=== PATIENT | male | born 1960 | race Caucasian/White ===

== ENCOUNTER 2017-12-18 10:20 | Inpatient (IN) | payer MEDICAID, MEDICARE ==
[2017-12-18] MEDS ORDERED: Sodium Chloride 0.9% 10 ML Syringe FLUSH PRN (16:48)
[2017-12-18] MEDS ORDERED: Furosemide 100 MG/10 ML SDV IVPUSH ONE (16:50)
[2017-12-18] MEDS ORDERED: predniSONE 10 MG Tab PO ONE (17:01)
[2017-12-18] MEDS ORDERED: Amoxicillin/Clavulanate K 875-125 MG Tab PO ONE (17:05)
[2017-12-18] MEDS ORDERED: Acetaminophen 325 MG Tab PO PRN (17:07)
[2017-12-18] MEDS ORDERED: Zolpidem 5 MG Tab PO PRN (17:07)
[2017-12-18] MEDS ORDERED: Albuterol/Ipratropium 3.0-0.5 MG/3 ML Neb Soln NEB PRN (17:08)
[2017-12-18] MEDS ORDERED: Furosemide 40 MG/4 ML VIAL IVPUSH ONE (17:15)
[2017-12-18] MEDS: Pantoprazole 40 MG Tab.CR PO SCH (18:25)
[2017-12-18] MEDS: Insulin Aspart 100 Units/ML 3 ML Pen SUBCUT SCH (18:26)
--- NOTE | 2017-12-18 19:19 | PCM.HP ---
H&P History of Present Illness - General Date of Service: 12/18/17 Admit Problem/Dx: Admission Diagnosis/Problem Admission Diagnosis/Problem CHF, Congestive heart failure Source of Information: Patient, Provider History Limitations: Reports: No Limitations - History of Present Illness Initial Comments - Free Text/Narative: 57-year-old gentleman presented to the outpatient clinic for increasing cough congestion and overall debility malaise. He has known history of cardiomyopathy. States not feeling up to par since July. He did call his PCP who recommended he double his dose of furosemide from 20-40 mg for the next 4 days. He did take 1 extra dose last night but still did not feel his breathing was to par. Presented to the clinic for further evaluation and management. Chest x-ray at the time did show questionable fluid overload as well as exacerbation of COPD with wheezing throughout the precordium. Has diabetes mellitus type 2 does not use insulin controlled on metformin. [facility] in [place] however hasn't been for some time. Last echocardiogram was roughly 2-3 years ago. No history of coronary event or valvular disease. States he's had intermittent sweats and chills. A productive cough with white phlegm. No chest pain or pressure. No interscapular pain neck pain jaw pain or radiation down the arms. Denies any abdominal pain. Did have some nausea but no vomiting. He denies any epistaxis or hemoptysis. Denies sore throat difficulty chewing or swallowing. Denies abdominal pain diarrhea melena or hematochezia. Notes his urine output has been significantly less over the last few days. Denies any dysuria or hematuria. Has not noticed any sudden increased swelling of the lower extremities and is not having any lower extremity redness pain or tenderness. He denies any recent long trips medication changes other than that mentioned or ill contacts. - Related Data Allergies/Adverse Reactions: Allergies Allergy/AdvReac Type Severity Reaction Status Date / Time nuts Allergy Anaphylactic Uncoded 12/21/13 16:11 Shock Home Medications: Home Meds Aspirin [Adult Low Dose Aspirin EC] 81 mg PO DAILY 12/21/13 [History] Carvedilol 25 mg PO BID 12/21/13 [History] Lisinopril 40 mg PO DAILY 12/21/13 [History] amLODIPine Besylate [Amlodipine Besylate] 5 mg PO DAILY 12/21/13 [History] Albuterol [Ventolin HFA] 2 puff INH Q4H PRN 12/18/17 [History] Albuterol/Ipratropium [DuoNeb 3.0-0.5 MG/3 ML] 3 ml NEB QID PRN 12/18/17 [ History] Cephalexin 500 mg PO TID 12/18/17 [History] Citalopram Hydrobromide [Celexa] 40 mg PO DAILY 12/18/17 [History] Doxepin [SINEquan] 50 mg PO BEDTIME 12/18/17 [History] Fexofenadine [Bekah] 180 mg PO DAILY 12/18/17 [History] Furosemide 40 mg PO DAILY 12/18/17 [History] HYDROcodone/Ibuprofen [Vicoprofen] 1 tab PO Q6H PRN 12/18/17 [History] metFORMIN [Glucophage] 850 mg PO BIDMEALS 12/18/17 [History] predniSONE [Prednisone] 10 mg PO BID 12/18/17 [History] Past Medical History HEENT History: Reports: Allergic Rhinitis Cardiovascular History: Reports: Cardiomyopathy, Heart Failure, Hypertension, SOB on Exertion Respiratory History: Reports: Bronchitis, Recurrent, COPD, Other (See Below) ( Uses oxygen intermittently with activity when needed) Gastrointestinal History: Reports: None Psychiatric History: Reports: Anxiety, Learning Disability Endocrine/Metabolic History: Reports: Diabetes, Type II, Obesity/BMI 30+ - Past Imaging History Past Imaging History: Reports: Angiography, Cardiac Echo Social & Family History - Tobacco Use Years of Tobacco use: 30 Used Tobacco, but Quit: Yes Month/Year Tobacco Last Used: 11/24/2013 Second Hand Smoke Exposure: Yes - Alcohol Use Days Per Week of Alcohol Use: 0 - Recreational Drug Use Recreational Drug Use: No Drug Use in Last 12 Months: No - Living Situation & Occupation Living situation: Reports: , with Spouse Occupation: Disabled H&P Review of Systems - Review of Systems: Review Of Systems: ROS reveals no pertinent complaints other than HPI. Exam - Exam Exam: See Below - Vital Signs Vital Signs: Last Vital Signs Temp 97.3 F 12/18/17 15:00 Pulse 86 12/18/17 15:00 Resp 20 12/18/17 15:00 BP 143/69 H 12/18/17 15:00 Pulse Ox 94 L 12/18/17 15:00 - Exam Quality Assessment: Supplemental Oxygen General: Alert, Oriented, Cooperative, Mild Distress HEENT: Conjunctiva Clear, Mucosa Moist & [place] Neck: Supple, Trachea Midline. No: Lymphadenopathy Lungs: Crackles, Wheezing Cardiovascular: Regular Rate, Regular Rhythm, Normal S1, Normal S2 GI/Abdominal Exam: Normal Bowel Sounds, Soft, Non-Tender Extremities: Non-Tender, Pedal Edema. No: Cee's Sign, Increased Warmth, Redness Skin: Warm, Intact Neurological: Reflexes Equal Bilateral Psychiatric: Alert, Normal Affect, Normal Mood - Patient Data Lab Results Last 24 hrs: Laboratory Results - last 24 hr 12/18/17 12/18/17 12/18/17 Range/Units 17:25 17:25 17:25 WBC 11.1 (4.5-12.0) X10-3/uL RBC 5.20 (4.30-5.75) x10(6)uL Hgb 14.9 (11.5-15.5) g/dL Hct 44.8 (30.0-51.3) % MCV 86.1 (80-96) fL MCH 28.6 (27.7-33.6) pg MCHC 33.2 (32.2-35.4) g/dL RDW 12.4 (11.5-15.5) % Plt Count 317 (125-369) X10(3)uL MPV 9.4 (7.4-10.4) fL Neut % (Auto) 68.7 (46-82) % Lymph % (Auto) 21.3 (13-37) % Page % (Auto) 6.9 (4-12) % Eos % (Auto) 2 (1.0-5.0) % Baso % (Auto) 1 (0-2) % Neut # (Auto) 7.5 (1.6-8.3) # Lymph # (Auto) 2.4 (0.6-5.0) # Page # (Auto) 0.8 (0.0-1.3) # Eos # (Auto) 0.3 (0.0-0.8) # Baso # (Auto) 0.1 (0.0-0.2) # ABG pH (7.35-7.45) ABG pCO2 (35-45) mmHg ABG pO2 (83-108) mmHg ABG HCO3 (22-26) mmol/L ABG O2 Saturation (96-97) % ABG Base Excess (-2-2) Juan David Test O2 Delivery Device Sodium 140 (135-145) mmol/L Potassium 3.4 L (3.5-5.3) mmol/L Chloride 100 (100-110) mmol/L Carbon Dioxide 30 (21-32) mmol/L BUN 29 H (7-18) mg/dL Creatinine 1.2 (0.70-1.30) mg/dL Est Cr Clr Drug Dosing TNP Estimated GFR (MDRD) > 60 (>60) BUN/Creatinine Ratio 24.2 H (9-20) Glucose 192 H (80-116) mg/dL Calcium 9.5 (8.6-10.2) mg/dL Phosphorus 4.3 (2.6-4.6) mg/dL Magnesium 1.7 L (1.8-2.5) mg/dL Total Bilirubin 0.4 (0.1-1.3) mg/dL AST 21 (5-25) IU/L ALT 61 H (12-36) U/L Alkaline Phosphatase 68 (56-112) IU/L Troponin I < 0.017 L (<0.017-0.056) ng/mL C-Reactive Protein 0.2 L (0.5-0.9) mg/dL NT-Pro-B Natriuret Pep 612 H (<=125) pg/mL Total Protein 7.7 (6.0-8.0) g/dL Albumin 3.9 (3.5-5.2) g/dL Globulin 3.8 g/dL Albumin/Globulin Ratio 1.0 TSH, Ultra Sensitive 2.67 (0.36-3.74) IU/mL 12/18/17 Range/Units 17:35 WBC (4.5-12.0) X10-3/uL RBC (4.30-5.75) x10(6)uL Hgb (11.5-15.5) g/dL Hct (30.0-51.3) % MCV (80-96) fL MCH (27.7-33.6) pg MCHC (32.2-35.4) g/dL RDW (11.5-15.5) % Plt Count (125-369) X10(3)uL MPV (7.4-10.4) fL Neut % (Auto) (46-82) % Lymph % (Auto) (13-37) % Page % (Auto) (4-12) % Eos % (Auto) (1.0-5.0) % Baso % (Auto) (0-2) % Neut # (Auto) (1.6-8.3) # Lymph # (Auto) (0.6-5.0) # Page # (Auto) (0.0-1.3) # Eos # (Auto) (0.0-0.8) # Baso # (Auto) (0.0-0.2) # ABG pH 7.38 (7.35-7.45) ABG pCO2 51 H (35-45) mmHg ABG pO2 49 L* (83-108) mmHg ABG HCO3 29 H (22-26) mmol/L ABG O2 Saturation 83 L* (96-97) % ABG Base Excess 3.3 H (-2-2) Juan David Test Passed O2 Delivery Device Nasal cannula Sodium (135-145) mmol/L Potassium (3.5-5.3) mmol/L Chloride (100-110) mmol/L Carbon Dioxide (21-32) mmol/L BUN (7-18) mg/dL Creatinine (0.70-1.30) mg/dL Est Cr Clr Drug Dosing Estimated GFR (MDRD) (>60) BUN/Creatinine Ratio (9-20) Glucose (80-116) mg/dL Calcium (8.6-10.2) mg/dL Phosphorus (2.6-4.6) mg/dL Magnesium (1.8-2.5) mg/dL Total Bilirubin (0.1-1.3) mg/dL AST (5-25) IU/L ALT (12-36) U/L Alkaline Phosphatase (56-112) IU/L Troponin I (<0.017-0.056) ng/mL C-Reactive Protein (0.5-0.9) mg/dL NT-Pro-B Natriuret Pep (<=125) pg/mL Total Protein (6.0-8.0) g/dL Albumin (3.5-5.2) g/dL Globulin g/dL Albumin/Globulin Ratio TSH, Ultra Sensitive (0.36-3.74) IU/mL Result Diagrams: 12/18/17 17:25 12/18/17 17:25 - Problem List (1) Acute on chronic congestive heart failure SNOMED Code(s): 45287697 ICD Code: I50.9 - HEART FAILURE, UNSPECIFIED Status: Acute Current Visit : Yes (2) Acute exacerbation of chronic obstructive pulmonary disease (COPD) SNOMED Code(s): 172412434 ICD Code: J44.1 - CHRONIC OBSTRUCTIVE PULMONARY DISEASE W (ACUTE) EXACERBATION Status: Acute Current Visit: Yes (3) Cardiomyopathy SNOMED Code(s): 69469342 ICD Code: I42.9 - CARDIOMYOPATHY, UNSPECIFIED Status: Chronic Priority: Medium Current Visit: Yes (4) Diabetes mellitus type 2 in obese SNOMED Code(s): 13459479 ICD Code: E11.69 - TYPE 2 DIABETES MELLITUS WITH OTHER SPECIFIED COMPLICATION ; E66.9 - OBESITY, UNSPECIFIED Status: Acute Current Visit: Yes (5) HTN, Benign hypertension SNOMED Code(s): 96169056 ICD Code: I10 - ESSENTIAL (PRIMARY) HYPERTENSION Status: Chronic Priority : Medium Current Visit: Yes (6) Morbid obesity SNOMED Code(s): 828167108, 78658990329256 ICD Code: E66.01 - MORBID (SEVERE) OBESITY DUE TO EXCESS CALORIES Status: Acute Current Visit: Yes (7) Anxiety SNOMED Code(s): 66786260 ICD Code: F41.9 - ANXIETY DISORDER, UNSPECIFIED Status: Chronic Priority : Medium Current Visit: Yes Problem List Initiated/Reviewed/Updated: Yes Orders Last 24hrs: Active Orders 24 hr Category Date Time Status Patient Status [ADT] Routine ADT 12/18/17 15:16 Active Bedrest Bathroom Privileges [RC] ASDIRECTED Care 12/18/17 17:07 Active Blood Glucose Check, Bedside [RC] TIDMEALS Care 12/18/17 16:48 Active Cardiac Education [RC] Click to Edit Care 12/18/17 16:49 Active Communication Order [RC] ASDIRECTED Care 12/18/17 16:49 Active Communication Order [RC] ASDIRECTED Care 12/18/17 16:55 Active Diabetes Education [RC] Click to Edit Care 12/18/17 16:49 Active Height and Weight [RC] DAILY Care 12/18/17 17:07 Active Intake and Output [RC] Q4H Care 12/18/17 17:08 Active Notify Provider Vital Signs [RC] ASDIRECTED Care 12/18/17 17:09 Active Oxygen Therapy [RC] ASDIRECTED Care 12/18/17 16:49 Active RT Incentive Spirometry [RC] Q2HWA Care 12/18/17 16:48 Active Telemetry Monitoring [Cardiac Monitoring] [RC] .As Care 12/18/17 15:16 Active Directed VTE/DVT Education [RC] Per Unit Routine Care 12/18/17 17:07 Active Vital Signs [RC] Q4H Care 12/18/17 17:07 Active Respiratory Care Assess and Treatment [CONS] Routine Cons 12/18/17 16:48 Active 2 Gram Sodium Diet [DIET] Diet 12/18/17 Breakfast Active Consistent Carbohydrate Diet [DIET] Diet 12/18/17 Breakfast Active Echo Comp wo Cont [US] Routine Exams 12/18/17 18:13 Ordered CULTURE BLOOD [BC] Urgent Lab 12/18/17 17:25 Received CULTURE BLOOD [BC] Urgent Lab 12/18/17 17:30 Received CULTURE SPUTUM + SMEAR [RM] Routine Lab 12/18/17 17:03 Ordered TROPONIN I [CHEM] Q4H Lab 12/18/17 21:07 Ordered UA W/MICROSCOPIC [URIN] Routine Lab 12/18/17 17:07 Ordered Acetaminophen [Tylenol] Med 12/18/17 17:07 Active 650 mg PO Q4H PRN Albuterol/Ipratropium [DuoNeb 3.0-0.5 MG/3 ML] Med 12/18/17 17:08 Active 3 ml NEB ASDIRECTED PRN Albuterol/Ipratropium [DuoNeb 3.0-0.5 MG/3 ML] Med 12/18/17 21:00 Active 3 ml NEB QIDRT Amoxicillin/Clavulanate K [Augmentin 875 MG/125 MG] Med 12/19/17 09:00 Active 1 tab PO BID Aspirin [Halfprin] Med 12/19/17 09:00 Active 81 mg PO DAILY Carvedilol [Coreg] Med 12/18/17 21:00 Active 25 mg PO BID Citalopram [Celexa] Med 12/19/17 09:00 Active 40 mg PO DAILY Doxepin [SINEquan] Med 12/18/17 21:00 Active 50 mg PO BEDTIME Enoxaparin [Lovenox] Med 12/18/17 20:00 Active 40 mg SUBCUT Q24H Insulin Aspart [NovoLOG] Med 12/18/17 18:00 Active See Protocol SUBCUT TIDMEALS Lisinopril [Prinivil] Med 12/19/17 09:00 Active 40 mg PO DAILY Pantoprazole [ProTONIX] Med 12/18/17 17:30 Active 40 mg PO ACBREAKFAST Sodium Chloride 0.9% [Saline Flush] Med 12/18/17 16:48 Active 10 ml FLUSH ASDIRECTED PRN Zolpidem [Ambien] Med 12/18/17 17:07 Active 5 mg PO BEDTIME PRN amLODIPine [Norvasc] Med 12/18/17 21:00 Active 5 mg PO DAILY metFORMIN [Glucophage] Med 12/18/17 18:00 Active 850 mg PO BIDMEALS predniSONE Med 12/19/17 08:00 Active 40 mg PO WITHBREAKFAST Blood Culture x2 Reflex Set [OM.PC] Urgent Oth 12/18/17 17:03 Ordered Peripheral IV Insertion Adult [OM.PC] Routine Oth 12/18/17 16:48 Ordered Resuscitation Status Routine Resus Stat 12/18/17 17:07 Ordered Medication Orders Acetaminophen (Tylenol) 650 mg PO Q4H PRN PRN Reason: Pain (Mild 1-3)/fever Albuterol/Ipratropium (Duoneb 3.0-0.5 Mg/3 Ml) 3 ml NEB QIDRT NIKHIL Albuterol/Ipratropium (Duoneb 3.0-0.5 Mg/3 Ml) 3 ml NEB ASDIRECTED PRN PRN Reason: SHORTNESS OF BREATH Amlodipine Besylate (Norvasc) 5 mg PO DAILY [facility] Amoxicillin/Clavulanate Potassium (Augmentin 875 Mg/125 Mg) 1 tab PO BID NIKHIL Stop: 12/24/17 09:01 Aspirin (Halfprin) 81 mg PO DAILY [facility] Carvedilol (Coreg) 25 mg PO BID [facility] Citalopram Hydrobromide (Celexa) 40 mg PO DAILY NIKHIL Doxepin HCl (Sinequan) 50 mg PO BEDTIME NIKHIL Enoxaparin Sodium (Lovenox) 40 mg SUBCUT Q24H [facility] Insulin Aspart (Novolog) 0 unit SUBCUT TIDMEALS [facility]; Protocol Last Admin: 12/18/17 18:26 Dose: 1 unit Lisinopril (Prinivil) 40 mg PO DAILY [facility] Metformin HCl (Glucophage) 850 mg PO BIDMEALS [facility] Last Admin: 12/18/17 18:25 Dose: 850 mg Pantoprazole Sodium (Protonix) 40 mg PO ACBREAKFAST [facility] Last Admin: 12/18/17 18:25 Dose: 40 mg Prednisone (Prednisone) 40 mg PO WITHBREAKFAST [facility] Sodium Chloride (Saline Flush) 10 ml FLUSH ASDIRECTED PRN PRN Reason: Keep Vein Open Zolpidem Tartrate (Ambien) 5 mg PO BEDTIME PRN PRN Reason: Sleep Assessment/Plan Comment:: Admit to medical surgical with telemetry. Saline lock IV Friday low-sodium carb consistent diet. Follow electrolytes. Continue oxygen via nasal cannula. Her DuoNeb treatments with incentive spirometry oral Augmentin has been started Lovenox started protonix started continue his home medications will give IV Lasix 40 mg monitor urine output. Daily weights. ABGs reviewed. CO2 retainer. Likely obstructive and restrictive sleep apnea. Get echocardiogram when the team is back. We'll have him up in about tomorrow. Anticipate 24-48 hour inpatient stay depending response to above medical interventions. Discussed this with his and him at the bedside all questions answered and agreement with the above plan of care.
[2017-12-18] MEDS: Enoxaparin 40 MG/0.4 ML Syringe SUBCUT SCH (21:13)
[2017-12-18] MEDS: Carvedilol 25 MG Tab PO SCH (21:13)
[2017-12-18] MEDS: Albuterol/Ipratropium 3.0-0.5 MG/3 ML Neb Soln NEB SCH (21:14)
[2017-12-18] MEDS: amLODIPine 5 MG Tab PO SCH (21:15)
[2017-12-18] MEDS ORDERED: Doxepin 25 MG Cap ONE (21:43)
[2017-12-18] MEDS ORDERED: Ketorolac 30 MG/ML SDV IVPUSH PRN (23:39)
[2017-12-18] MEDS ORDERED: Albuterol 8 GM Inhaler INH PRN (23:43)
[2017-12-19] MEDS ORDERED: predniSONE 20 MG Tab PO SCH (08:00)
[2017-12-19] MEDS: Albuterol/Ipratropium 3.0-0.5 MG/3 ML Neb Soln NEB SCH ×4 (08:39→20:03)
--- NOTE | 2017-12-19 08:54 | PCM.PN ---
- General Info Date of Service: 12/19/17 Admission Dx/Problem (Free Text): patient states his cough is better and his breathing is better today. He still needs a set up with the head of the bed elevated. He says he is short of breath when he is walking. He has been up much other than to the bathroom. He denies chest pain, fevers, chills, leg swelling. - Patient Data Vitals - Most Recent: Last Vital Signs Temp 97.4 F 12/19/17 04:30 Pulse 73 12/19/17 04:30 Resp 20 12/19/17 04:30 BP 132/72 12/19/17 04:30 Pulse Ox 91 L 12/19/17 04:30 Weight - Most Recent: 326 lb 9.6 oz I&O - Last 24 Hours: Intake & Output 12/18/17 12/19/17 12/19/17 22:59 06:59 14:59 Intake Total 250 Output Total 1100 500 Balance -850 -500 Lab Results Last 24 Hours: Laboratory Results - last 24 hr 12/18/17 12/18/17 12/18/17 Range/Units 17:25 17:25 17:25 WBC 11.1 (4.5-12.0) X10-3/uL RBC 5.20 (4.30-5.75) x10(6)uL Hgb 14.9 (11.5-15.5) g/dL Hct 44.8 (30.0-51.3) % MCV 86.1 (80-96) fL MCH 28.6 (27.7-33.6) pg MCHC 33.2 (32.2-35.4) g/dL RDW 12.4 (11.5-15.5) % Plt Count 317 (125-369) X10(3)uL MPV 9.4 (7.4-10.4) fL Neut % (Auto) 68.7 (46-82) % Lymph % (Auto) 21.3 (13-37) % [place] % (Auto) 6.9 (4-12) % Eos % (Auto) 2 (1.0-5.0) % Baso % (Auto) 1 (0-2) % Neut # (Auto) 7.5 (1.6-8.3) # Lymph # (Auto) 2.4 (0.6-5.0) # [place] # (Auto) 0.8 (0.0-1.3) # Eos # (Auto) 0.3 (0.0-0.8) # Baso # (Auto) 0.1 (0.0-0.2) # ABG pH (7.35-7.45) ABG pCO2 (35-45) mmHg ABG pO2 (83-108) mmHg ABG HCO3 (22-26) mmol/L ABG O2 Saturation (96-97) % ABG Base Excess (-2-2) Juan David Test O2 Delivery Device Sodium 140 (135-145) mmol/L Potassium 3.4 L (3.5-5.3) mmol/L Chloride 100 (100-110) mmol/L Carbon Dioxide 30 (21-32) mmol/L BUN 29 H (7-18) mg/dL Creatinine 1.2 (0.70-1.30) mg/dL Est Cr Clr Drug Dosing TNP Estimated GFR (MDRD) > 60 (>60) BUN/Creatinine Ratio 24.2 H (9-20) Glucose 192 H (80-116) mg/dL POC Glucose (80-116) mg/dL Calcium 9.5 (8.6-10.2) mg/dL Phosphorus 4.3 (2.6-4.6) mg/dL Magnesium 1.7 L (1.8-2.5) mg/dL Total Bilirubin 0.4 (0.1-1.3) mg/dL AST 21 (5-25) IU/L ALT 61 H (12-36) U/L Alkaline Phosphatase 68 (56-112) IU/L Troponin I < 0.017 L (<0.017-0.056) ng/mL C-Reactive Protein 0.2 L (0.5-0.9) mg/dL NT-Pro-B Natriuret Pep 612 H (<=125) pg/mL Total Protein 7.7 (6.0-8.0) g/dL Albumin 3.9 (3.5-5.2) g/dL Globulin 3.8 g/dL Albumin/Globulin Ratio 1.0 TSH, Ultra Sensitive 2.67 (0.36-3.74) IU/mL Urine Color (YELLOW) Urine Appearance (CLEAR) Urine pH (5.0-6.5) Ur Specific [place] (1.010-1.025) Urine Protein (NEGATIVE) mg/dL Urine Glucose (UA) (NEGATIVE) mg/dL Urine Ketones (NEGATIVE) mg/dL Urine Occult Blood (NEGATIVE) Urine Nitrite (NEGATIVE) Urine Bilirubin (NEGATIVE) Urine Urobilinogen (NEGATIVE) mg/dL Ur Leukocyte Esterase (NEGATIVE) Urine RBC (0) Urine WBC (0) Ur Squamous Epith Cells (NS,R,O) Urine Bacteria (NS) 12/18/17 12/18/17 12/18/17 Range/Units 17:35 21:00 21:10 WBC (4.5-12.0) X10-3/uL RBC (4.30-5.75) x10(6)uL Hgb (11.5-15.5) g/dL Hct (30.0-51.3) % MCV (80-96) fL MCH (27.7-33.6) pg MCHC (32.2-35.4) g/dL RDW (11.5-15.5) % Plt Count (125-369) X10(3)uL MPV (7.4-10.4) fL Neut % (Auto) (46-82) % Lymph % (Auto) (13-37) % [place] % (Auto) (4-12) % Eos % (Auto) (1.0-5.0) % Baso % (Auto) (0-2) % Neut # (Auto) (1.6-8.3) # Lymph # (Auto) (0.6-5.0) # [place] # (Auto) (0.0-1.3) # Eos # (Auto) (0.0-0.8) # Baso # (Auto) (0.0-0.2) # ABG pH 7.38 (7.35-7.45) ABG pCO2 51 H (35-45) mmHg ABG pO2 49 L* (83-108) mmHg ABG HCO3 29 H (22-26) mmol/L ABG O2 Saturation 83 L* (96-97) % ABG Base Excess 3.3 H (-2-2) Juan David Test Passed O2 Delivery Device Nasal cannula Sodium (135-145) mmol/L Potassium (3.5-5.3) mmol/L Chloride (100-110) mmol/L Carbon Dioxide (21-32) mmol/L BUN (7-18) mg/dL Creatinine (0.70-1.30) mg/dL Est Cr Clr Drug Dosing Estimated GFR (MDRD) (>60) BUN/Creatinine Ratio (9-20) Glucose (80-116) mg/dL POC Glucose (80-116) mg/dL Calcium (8.6-10.2) mg/dL Phosphorus (2.6-4.6) mg/dL Magnesium (1.8-2.5) mg/dL Total Bilirubin (0.1-1.3) mg/dL AST (5-25) IU/L ALT (12-36) U/L Alkaline Phosphatase (56-112) IU/L Troponin I 0.019 (<0.017-0.056) ng/mL C-Reactive Protein (0.5-0.9) mg/dL NT-Pro-B Natriuret Pep (<=125) pg/mL Total Protein (6.0-8.0) g/dL Albumin (3.5-5.2) g/dL Globulin g/dL Albumin/Globulin Ratio TSH, Ultra Sensitive (0.36-3.74) IU/mL Urine Color Yellow (YELLOW) Urine Appearance Clear (CLEAR) Urine pH 5.0 (5.0-6.5) Ur Specific [place] 1.020 (1.010-1.025) Urine Protein Negative (NEGATIVE) mg/dL Urine Glucose (UA) Normal (NEGATIVE) mg/dL Urine Ketones Negative (NEGATIVE) mg/dL Urine Occult Blood Negative (NEGATIVE) Urine Nitrite Negative (NEGATIVE) Urine Bilirubin Negative (NEGATIVE) Urine Urobilinogen Normal (NEGATIVE) mg/dL Ur Leukocyte Esterase Negative (NEGATIVE) Urine RBC 0-5 (0) Urine WBC 0-5 (0) Ur Squamous Epith Cells Occasional (NS,R,O) Urine Bacteria Few H (NS) 12/19/17 Range/Units 07:29 WBC (4.5-12.0) X10-3/uL RBC (4.30-5.75) x10(6)uL Hgb (11.5-15.5) g/dL Hct (30.0-51.3) % MCV (80-96) fL MCH (27.7-33.6) pg MCHC (32.2-35.4) g/dL RDW (11.5-15.5) % Plt Count (125-369) X10(3)uL MPV (7.4-10.4) fL Neut % (Auto) (46-82) % Lymph % (Auto) (13-37) % [place] % (Auto) (4-12) % Eos % (Auto) (1.0-5.0) % Baso % (Auto) (0-2) % Neut # (Auto) (1.6-8.3) # Lymph # (Auto) (0.6-5.0) # [place] # (Auto) (0.0-1.3) # Eos # (Auto) (0.0-0.8) # Baso # (Auto) (0.0-0.2) # ABG pH (7.35-7.45) ABG pCO2 (35-45) mmHg ABG pO2 (83-108) mmHg ABG HCO3 (22-26) mmol/L ABG O2 Saturation (96-97) % ABG Base Excess (-2-2) Juan David Test O2 Delivery Device Sodium (135-145) mmol/L Potassium (3.5-5.3) mmol/L Chloride (100-110) mmol/L Carbon Dioxide (21-32) mmol/L BUN (7-18) mg/dL Creatinine (0.70-1.30) mg/dL Est Cr Clr Drug Dosing Estimated GFR (MDRD) (>60) BUN/Creatinine Ratio (9-20) Glucose (80-116) mg/dL POC Glucose 146 H (80-116) mg/dL Calcium (8.6-10.2) mg/dL Phosphorus (2.6-4.6) mg/dL Magnesium (1.8-2.5) mg/dL Total Bilirubin (0.1-1.3) mg/dL AST (5-25) IU/L ALT (12-36) U/L Alkaline Phosphatase (56-112) IU/L Troponin I (<0.017-0.056) ng/mL C-Reactive Protein (0.5-0.9) mg/dL NT-Pro-B Natriuret Pep (<=125) pg/mL Total Protein (6.0-8.0) g/dL Albumin (3.5-5.2) g/dL Globulin g/dL Albumin/Globulin Ratio TSH, Ultra Sensitive (0.36-3.74) IU/mL Urine Color (YELLOW) Urine Appearance (CLEAR) Urine pH (5.0-6.5) Ur Specific [place] (1.010-1.025) Urine Protein (NEGATIVE) mg/dL Urine Glucose (UA) (NEGATIVE) mg/dL Urine Ketones (NEGATIVE) mg/dL Urine Occult Blood (NEGATIVE) Urine Nitrite (NEGATIVE) Urine Bilirubin (NEGATIVE) Urine Urobilinogen (NEGATIVE) mg/dL Ur Leukocyte Esterase (NEGATIVE) Urine RBC (0) Urine WBC (0) Ur Squamous Epith Cells (NS,R,O) Urine Bacteria (NS) Med Orders - Current: Current Medications Acetaminophen (Tylenol) 650 mg PO Q4H PRN PRN Reason: Pain (Mild 1-3)/fever Albuterol (Ventolin Hfa) 0 gm INH Q2H PRN PRN Reason: Shortness of Breath Albuterol/Ipratropium (Duoneb 3.0-0.5 Mg/3 Ml) 3 ml NEB QIDRT [facility] Last Admin: 12/19/17 08:39 Dose: 3 ml Albuterol/Ipratropium (Duoneb 3.0-0.5 Mg/3 Ml) 3 ml NEB ASDIRECTED PRN PRN Reason: SHORTNESS OF BREATH Amlodipine Besylate (Norvasc) 5 mg PO DAILY [facility] Last Admin: 12/18/17 21:15 Dose: 5 mg Amoxicillin/Clavulanate Potassium (Augmentin 875 Mg/125 Mg) 1 tab PO BID [facility] Stop: 12/24/17 09:01 Aspirin (Halfprin) 81 mg PO DAILY [facility] Carvedilol (Coreg) 25 mg PO BID [facility] Last Admin: 12/18/17 21:13 Dose: 25 mg Citalopram Hydrobromide (Celexa) 40 mg PO DAILY [facility] Doxepin HCl (Sinequan) 50 mg PO BEDTIME [facility] Last Admin: 12/18/17 21:45 Dose: 50 mg Enoxaparin Sodium (Lovenox) 40 mg SUBCUT Q24H [facility] Last Admin: 12/18/17 21:13 Dose: 40 mg Insulin Aspart (Novolog) 0 unit SUBCUT TIDMEALS [facility]; Protocol Last Admin: 12/18/17 18:26 Dose: 1 unit Ketorolac Tromethamine (Toradol) 30 mg IVPUSH Q6H PRN PRN Reason: Pain Stop: 12/23/17 23:40 Lisinopril (Prinivil) 40 mg PO DAILY [facility] Metformin HCl (Glucophage) 850 mg PO BIDMEALS [facility] Last Admin: 12/18/17 18:25 Dose: 850 mg Pantoprazole Sodium (Protonix) 40 mg PO ACBREAKFAST [facility] Last Admin: 12/18/17 18:25 Dose: 40 mg Prednisone (Prednisone) 40 mg PO WITHBREAKFAST [facility] Sodium Chloride (Saline Flush) 10 ml FLUSH ASDIRECTED PRN PRN Reason: Keep Vein Open Zolpidem Tartrate (Ambien) 5 mg PO BEDTIME PRN PRN Reason: Sleep Discontinued Medications Amoxicillin/Clavulanate Potassium (Augmentin 875 Mg/125 Mg) 1 tab PO NOW ONE Stop: 12/18/17 17:06 Last Admin: 12/18/17 18:25 Dose: 1 tab Doxepin HCl (Sinequan) Confirm Administered Dose 50 mg .ROUTE .STK-MED ONE Stop: 12/18/17 21:44 Last Admin: 12/18/17 21:44 Dose: Not Given Furosemide (Lasix) 40 mg IVPUSH NOW ONE Stop: 12/18/17 16:51 Last Admin: 12/18/17 17:55 Dose: Not Given Furosemide (Lasix) 40 mg IVPUSH NOW ONE Stop: 12/18/17 17:16 Last Admin: 12/18/17 17:29 Dose: 40 mg Prednisone (Prednisone) 20 mg PO WITHBREAKFAST [facility] Prednisone (Prednisone) 10 mg PO ONETIME ONE Stop: 12/18/17 17:02 Last Admin: 12/18/17 18:26 Dose: 10 mg - Exam General: Alert, Oriented, Cooperative Lungs: Normal Respiratory Effort, Decreased Breath Sounds, Rales (bases bilateral), Wheezing Cardiovascular: Regular Rate, Regular Rhythm, No Murmurs Extremities: No Pedal Edema - Problem List & Annotations (1) Acute exacerbation of chronic obstructive pulmonary disease (COPD) SNOMED Code(s): 645716637 Code(s): J44.1 - CHRONIC OBSTRUCTIVE PULMONARY DISEASE W (ACUTE) EXACERBATION Status: Acute Current Visit: Yes (2) Acute on chronic congestive heart failure SNOMED Code(s): 55940414 Code(s): I50.9 - HEART FAILURE, UNSPECIFIED Status: Acute Current Visit: Yes (3) Morbid obesity SNOMED Code(s): 504712082, 43074811415400 Code(s): E66.01 - MORBID (SEVERE) OBESITY DUE TO EXCESS CALORIES Status: Acute Current Visit: Yes (4) Cardiomyopathy SNOMED Code(s): 94035479 Code(s): I42.9 - CARDIOMYOPATHY, UNSPECIFIED Status: Chronic Priority: Medium Current Visit: Yes (5) Palliative care encounter SNOMED Code(s): 796354032 Code(s): Z51.5 - ENCOUNTER FOR PALLIATIVE CARE Status: Acute Current Visit: Yes - Problem List Review Problem List Initiated/Reviewed/Updated: Yes - My Orders Last 24 Hours: My Active Orders 12/19/17 08:51 Up ad Miah [RC] ASDIRECTED 12/19/17 09:00 Furosemide [Lasix] 40 mg IVPUSH BID - Plan Plan:: 1. Chest x-ray report from the clinic show CHF and no pneumonia.states Rule it out. 2. Start Lasix 40 mg IV twice a day. 3. Up ad miah. and get him up in the chair and moving around.
[2017-12-19] MEDS: Pantoprazole 40 MG Tab.CR PO SCH (09:10)
[2017-12-19] MEDS: Amoxicillin/Clavulanate K 875-125 MG Tab PO SCH ×2 (09:11→20:01)
[2017-12-19] MEDS: predniSONE 20 MG Tab PO SCH (09:11)
[2017-12-19] MEDS: Insulin Aspart 100 Units/ML 3 ML Pen SUBCUT SCH ×3 (09:11→17:49)
[2017-12-19] MEDS: Aspirin 81 MG Tab.EC PO SCH (09:12)
[2017-12-19] MEDS: amLODIPine 5 MG Tab PO SCH (09:12)
[2017-12-19] MEDS: Carvedilol 25 MG Tab PO SCH ×2 (09:12→20:01)
[2017-12-19] MEDS: Furosemide 40 MG/4 ML VIAL IVPUSH SCH ×2 (09:24→14:44)
[2017-12-19] MEDS ORDERED: Ibuprofen 600 MG Tab PO PRN (18:03)
[2017-12-19] MEDS: Enoxaparin 40 MG/0.4 ML Syringe SUBCUT SCH (20:01)
[2017-12-19] MEDS: Doxepin 25 MG Cap PO SCH (20:03)
[2017-12-20] MEDS: Pantoprazole 40 MG Tab.CR PO SCH ×2 (05:19→06:38)
[2017-12-20] MEDS: Albuterol/Ipratropium 3.0-0.5 MG/3 ML Neb Soln NEB SCH ×4 (07:16→20:42)
[2017-12-20] MEDS: predniSONE 20 MG Tab PO SCH (08:25)
[2017-12-20] MEDS: Amoxicillin/Clavulanate K 875-125 MG Tab PO SCH ×2 (08:31→20:40)
[2017-12-20] MEDS: Citalopram 20 MG Tab PO SCH (08:32)
[2017-12-20] MEDS: Carvedilol 25 MG Tab PO SCH ×2 (08:32→20:41)
[2017-12-20] MEDS: Furosemide 40 MG/4 ML VIAL IVPUSH SCH (08:35)
[2017-12-20] MEDS: Insulin Aspart 100 Units/ML 3 ML Pen SUBCUT SCH ×3 (08:37→17:49)
--- NOTE | 2017-12-20 09:14 | PCM.PN ---
- General Info Date of Service: 12/20/17 Admission Dx/Problem (Free Text): Patient states he is doing well. He is breathing much better. He denies any leg swelling, shortness of breath when he sitting. When he walks he gets short of breath but that's normal for him. His history of cardiomyopathy and CHF. He denies fevers, chills, ear pain, nasal congestion or chest pain. - Patient Data Vitals - Most Recent: Last Vital Signs Temp 97.7 F 12/20/17 08:12 Pulse 74 12/20/17 08:32 Resp 16 12/20/17 08:12 BP 118/56 L 12/20/17 08:32 Pulse Ox 93 L 12/20/17 08:12 Weight - Most Recent: 324 lb 2 oz I&O - Last 24 Hours: Intake & Output 12/19/17 12/20/17 12/20/17 22:59 06:59 14:59 Intake Total 240 240 Output Total 450 700 Balance -450 -460 240 Lab Results Last 24 Hours: Laboratory Results - last 24 hr 12/19/17 12/19/17 12/20/17 Range/Units 11:39 17:23 06:22 Sodium 140 (135-145) mmol/L Potassium 3.6 (3.5-5.3) mmol/L Chloride 101 (100-110) mmol/L Carbon Dioxide 32 (21-32) mmol/L BUN 34 H (7-18) mg/dL Creatinine 1.1 (0.70-1.30) mg/dL Est Cr Clr Drug Dosing 86.14 mL/min Estimated GFR (MDRD) > 60 (>60) BUN/Creatinine Ratio 30.9 H (9-20) Glucose 192 H (80-116) mg/dL POC Glucose 172 H 296 H D (80-116) mg/dL Calcium 9.0 (8.6-10.2) mg/dL Total Bilirubin 0.5 (0.1-1.3) mg/dL AST 21 (5-25) IU/L ALT 55 H (12-36) U/L Alkaline Phosphatase 65 (56-112) IU/L Total Protein 7.2 (6.0-8.0) g/dL Albumin 3.7 (3.5-5.2) g/dL Globulin 3.5 g/dL Albumin/Globulin Ratio 1.1 Aidan Results Last 24 Hours: Microbiology 12/18/17 17:30 Aerobic Blood Culture - Preliminary Blood - Venous - Lab Draw NO GROWTH AFTER 1 DAY Anaerobic Blood Culture - Preliminary NO GROWTH AFTER 1 DAY 12/18/17 17:25 Aerobic Blood Culture - Preliminary Blood - Venous NO GROWTH AFTER 1 DAY Anaerobic Blood Culture - Preliminary NO GROWTH AFTER 1 DAY 12/18/17 21:10 Gram Stain - Final Sputum - Expectorated Sputum Culture - Preliminary Unidentified Organism Med Orders - Current: Current Medications Acetaminophen (Tylenol) 650 mg PO Q4H PRN PRN Reason: Pain (Mild 1-3)/fever Albuterol (Ventolin Hfa) 0 gm INH Q2H PRN PRN Reason: Shortness of Breath Albuterol/Ipratropium (Duoneb 3.0-0.5 Mg/3 Ml) 3 ml NEB QIDRT [facility] Last Admin: 12/20/17 07:16 Dose: 3 ml Albuterol/Ipratropium (Duoneb 3.0-0.5 Mg/3 Ml) 3 ml NEB ASDIRECTED PRN PRN Reason: SHORTNESS OF BREATH Amlodipine Besylate (Norvasc) 5 mg PO DAILY [facility] Last Admin: 12/19/17 09:12 Dose: 5 mg Amoxicillin/Clavulanate Potassium (Augmentin 875 Mg/125 Mg) 1 tab PO BID [facility] Stop: 12/24/17 09:01 Last Admin: 12/20/17 08:31 Dose: 1 tab Aspirin (Halfprin) 81 mg PO DAILY [facility] Last Admin: 12/19/17 09:12 Dose: 81 mg Carvedilol (Coreg) 25 mg PO BID [facility] Last Admin: 12/20/17 08:32 Dose: 25 mg Citalopram Hydrobromide (Celexa) 40 mg PO DAILY [facility] Last Admin: 12/20/17 08:32 Dose: 40 mg Doxepin HCl (Sinequan) 50 mg PO BEDTIME [facility] Last Admin: 12/19/17 20:03 Dose: 50 mg Enoxaparin Sodium (Lovenox) 40 mg SUBCUT Q24H [facility] Last Admin: 12/19/17 20:01 Dose: 40 mg Furosemide (Lasix) 40 mg PO BIDDIURETIC [facility] Ibuprofen (Motrin) 600 mg PO Q6H PRN PRN Reason: Pain Insulin Aspart (Novolog) 0 unit SUBCUT TIDMEALS [facility]; Protocol Last Admin: 12/20/17 08:37 Dose: 1 unit Lisinopril (Prinivil) 40 mg PO DAILY [facility] Last Admin: 12/19/17 09:12 Dose: 40 mg Metformin HCl (Glucophage) 850 mg PO BIDMEALS [facility] Last Admin: 12/20/17 08:24 Dose: 850 mg Pantoprazole Sodium (Protonix) 40 mg PO ACBREAKFAST [facility] Last Admin: 12/20/17 06:38 Dose: Not Given Prednisone (Prednisone) 20 mg PO WITHBREAKFAST [facility] Sodium Chloride (Saline Flush) 10 ml FLUSH ASDIRECTED PRN PRN Reason: Keep Vein Open Last Admin: 12/19/17 14:49 Dose: 10 ml Zolpidem Tartrate (Ambien) 5 mg PO BEDTIME PRN PRN Reason: Sleep Discontinued Medications Amoxicillin/Clavulanate Potassium (Augmentin 875 Mg/125 Mg) 1 tab PO NOW ONE Stop: 12/18/17 17:06 Last Admin: 12/18/17 18:25 Dose: 1 tab Citalopram Hydrobromide (Celexa) 40 mg PO DAILY [facility] Last Admin: 12/19/17 09:12 Dose: 40 mg Doxepin HCl (Sinequan) 50 mg PO BEDTIME [facility] Last Admin: 12/18/17 21:45 Dose: 50 mg Doxepin HCl (Sinequan) Confirm Administered Dose 50 mg .ROUTE .STK-MED ONE Stop: 12/18/17 21:44 Last Admin: 12/18/17 21:44 Dose: Not Given Furosemide (Lasix) 40 mg IVPUSH NOW ONE Stop: 12/18/17 16:51 Last Admin: 12/18/17 17:55 Dose: Not Given Furosemide (Lasix) 40 mg IVPUSH NOW ONE Stop: 12/18/17 17:16 Last Admin: 12/18/17 17:29 Dose: 40 mg Furosemide (Lasix) 40 mg IVPUSH [facility]URETIC [facility] Last Admin: 12/20/17 08:35 Dose: Not Given Furosemide (Lasix) 40 mg PO DAILY [facility] Ketorolac Tromethamine (Toradol) 30 mg IVPUSH Q6H PRN PRN Reason: Pain Stop: 12/23/17 23:40 Prednisone (Prednisone) 20 mg PO WITHBREAKFAST [facility] Prednisone (Prednisone) 10 mg PO ONETIME ONE Stop: 12/18/17 17:02 Last Admin: 12/18/17 18:26 Dose: 10 mg Prednisone (Prednisone) 40 mg PO WITHBREAKFAST [facility] Last Admin: 12/20/17 08:25 Dose: 40 mg - Exam General: Alert, Oriented, Cooperative Lungs: Normal Respiratory Effort, Decreased Breath Sounds, Wheezing (Occasional) Cardiovascular: Regular Rate, Regular Rhythm, No Murmurs Extremities: No Pedal Edema - Problem List & Annotations (1) Acute exacerbation of chronic obstructive pulmonary disease (COPD) SNOMED Code(s): 961623782 Code(s): J44.1 - CHRONIC OBSTRUCTIVE PULMONARY DISEASE W (ACUTE) EXACERBATION Status: Acute Current Visit: Yes (2) Acute on chronic congestive heart failure SNOMED Code(s): 46411471 Code(s): I50.9 - HEART FAILURE, UNSPECIFIED Status: Acute Current Visit: Yes (3) Morbid obesity SNOMED Code(s): 952950024, 77630824805534 Code(s): E66.01 - MORBID (SEVERE) OBESITY DUE TO EXCESS CALORIES Status: Acute Current Visit: Yes (4) Cardiomyopathy SNOMED Code(s): 61653631 Code(s): I42.9 - CARDIOMYOPATHY, UNSPECIFIED Status: Chronic Priority: Medium Current Visit: Yes (5) Palliative care encounter SNOMED Code(s): 241232974 Code(s): Z51.5 - ENCOUNTER FOR PALLIATIVE CARE Status: Acute Current Visit: Yes - Problem List Review Problem List Initiated/Reviewed/Updated: Yes - My Orders Last 24 Hours: My Active Orders 12/19/17 08:51 Up ad Rema [RC] ASDIRECTED 12/19/17 18:03 Ibuprofen [Motrin] 600 mg PO Q6H PRN 12/19/17 18:36 Vital Signs [RC] 00,08,16 12/20/17 09:12 PRO B-TYPE NATRIUR PEPT,BNPPRO [CHEM] Routine 12/20/17 14:00 Furosemide [Lasix] 40 mg PO BIDDIURETIC 12/21/17 08:00 predniSONE 20 mg PO WITHBREAKFAST - Plan Plan:: 1. DC IV Lasix and start by mouth Lasix. 2. Ambulate frequently. 3. He has not had pro-BMP so that will be done today. 4. He had a echo and the tech report shows his ejection fraction is 25-27%. Last echo his ejection fraction was 35%. This information was relayed to the patient today. 5. Decrease prednisone to 20 mg a day. 6. Continue Augmentin
[2017-12-20] MEDS ORDERED: Furosemide 40 MG Tab PO SCH (09:15)
[2017-12-20] MEDS: Furosemide 40 MG Tab PO SCH ×2 (09:51→15:43)
[2017-12-20] MEDS: Aspirin 81 MG Tab.EC PO SCH (09:51)
[2017-12-20] MEDS: amLODIPine 5 MG Tab PO SCH (09:51)
[2017-12-20] MEDS: Doxepin 25 MG Cap PO SCH (20:41)
[2017-12-20] MEDS: Enoxaparin 40 MG/0.4 ML Syringe SUBCUT SCH (20:42)
[2017-12-21] MEDS: Albuterol/Ipratropium 3.0-0.5 MG/3 ML Neb Soln NEB SCH (06:24)
[2017-12-21] MEDS: Insulin Aspart 100 Units/ML 3 ML Pen SUBCUT SCH (07:52)
[2017-12-21] MEDS: Pantoprazole 40 MG Tab.CR PO SCH (07:54)
[2017-12-21] MEDS: Furosemide 40 MG Tab PO SCH (07:55)
[2017-12-21] MEDS ORDERED: predniSONE 20 MG Tab PO SCH (08:00)
[2017-12-21] MEDS: Citalopram 20 MG Tab PO SCH (08:04)
[2017-12-21] MEDS: Carvedilol 25 MG Tab PO SCH (08:04)
[2017-12-21] MEDS: Amoxicillin/Clavulanate K 875-125 MG Tab PO SCH (08:04)
[2017-12-21] MEDS: Aspirin 81 MG Tab.EC PO SCH (08:05)
[2017-12-21] MEDS: amLODIPine 5 MG Tab PO SCH (08:05)
--- NOTE | 2017-12-21 08:12 | PCM.PN ---
- General Info Date of Service: 12/21/17 Admission Dx/Problem (Free Text): Patient states he feels much better. No shortness of breath or chest pain. He has a little chest congestion nasal congestion. No fevers or chills. - Patient Data Vitals - Most Recent: Last Vital Signs Temp 97.6 F 12/20/17 23:55 Pulse 65 12/21/17 08:04 Resp 18 12/20/17 23:55 BP 136/60 12/21/17 08:05 Pulse Ox 95 12/20/17 23:55 Weight - Most Recent: 324 lb 2 oz I&O - Last 24 Hours: Intake & Output 12/20/17 12/21/17 12/21/17 22:59 06:59 14:59 Intake Total 1500 Output Total 525 Balance 975 Lab Results Last 24 Hours: Laboratory Results - last 24 hr 12/20/17 12/20/17 12/20/17 Range/Units 06:22 12:12 17:14 POC Glucose 231 H 260 H (80-116) mg/dL NT-Pro-B Natriuret Pep 211 H (<=125) pg/mL [facility] Results Last 24 Hours: Microbiology 12/18/17 17:30 Aerobic Blood Culture - Preliminary Blood - Venous - Lab Draw NO GROWTH AFTER 2 DAYS Anaerobic Blood Culture - Preliminary NO GROWTH AFTER 2 DAYS 12/18/17 17:25 Aerobic Blood Culture - Preliminary Blood - Venous NO GROWTH AFTER 2 DAYS Anaerobic Blood Culture - Preliminary NO GROWTH AFTER 2 DAYS 12/18/17 21:10 Gram Stain - Final Sputum - Expectorated Sputum Culture - Preliminary Unidentified Organism Med Orders - Current: Current Medications Acetaminophen (Tylenol) 650 mg PO Q4H PRN PRN Reason: Pain (Mild 1-3)/fever Albuterol (Ventolin Hfa) 0 gm INH Q2H PRN PRN Reason: Shortness of Breath Albuterol/Ipratropium (Duoneb 3.0-0.5 Mg/3 Ml) 3 ml NEB QIDRT [facility] Last Admin: 12/21/17 06:24 Dose: 3 ml Albuterol/Ipratropium (Duoneb 3.0-0.5 Mg/3 Ml) 3 ml NEB ASDIRECTED PRN PRN Reason: SHORTNESS OF BREATH Amlodipine Besylate (Norvasc) 5 mg PO DAILY [facility] Last Admin: 12/21/17 08:05 Dose: 5 mg Amoxicillin/Clavulanate Potassium (Augmentin 875 Mg/125 Mg) 1 tab PO BID [facility] Stop: 12/24/17 09:01 Last Admin: 12/21/17 08:04 Dose: 1 tab Aspirin (Halfprin) 81 mg PO DAILY [facility] Last Admin: 12/21/17 08:05 Dose: 81 mg Carvedilol (Coreg) 25 mg PO BID [facility] Last Admin: 12/21/17 08:04 Dose: 25 mg Citalopram Hydrobromide (Celexa) 40 mg PO DAILY [facility] Last Admin: 12/21/17 08:04 Dose: 40 mg Doxepin HCl (Sinequan) 50 mg PO BEDTIME [facility] Last Admin: 12/20/17 20:41 Dose: 50 mg Enoxaparin Sodium (Lovenox) 40 mg SUBCUT Q24H [facility] Last Admin: 12/20/17 20:42 Dose: 40 mg Furosemide (Lasix) 40 mg PO BIDDIURETIC [facility] Last Admin: 12/21/17 07:55 Dose: 40 mg Ibuprofen (Motrin) 600 mg PO Q6H PRN PRN Reason: Pain Insulin Aspart (Novolog) 0 unit SUBCUT TIDMEALS [facility]; Protocol Last Admin: 12/21/17 07:52 Dose: 2 unit Lisinopril (Prinivil) 40 mg PO DAILY [facility] Last Admin: 12/21/17 08:05 Dose: 40 mg Metformin HCl (Glucophage) 850 mg PO BIDMEALS [facility] Last Admin: 12/21/17 07:54 Dose: 850 mg Pantoprazole Sodium (Protonix) 40 mg PO ACBREAKFAST [facility] Last Admin: 12/21/17 07:54 Dose: 40 mg Prednisone (Prednisone) 20 mg PO WITHBREAKFAST [facility] Last Admin: 12/21/17 07:56 Dose: 20 mg Sodium Chloride (Saline Flush) 10 ml FLUSH ASDIRECTED PRN PRN Reason: Keep Vein Open Last Admin: 12/19/17 14:49 Dose: 10 ml Zolpidem Tartrate (Ambien) 5 mg PO BEDTIME PRN PRN Reason: Sleep Discontinued Medications Amoxicillin/Clavulanate Potassium (Augmentin 875 Mg/125 Mg) 1 tab PO NOW ONE Stop: 12/18/17 17:06 Last Admin: 12/18/17 18:25 Dose: 1 tab Citalopram Hydrobromide (Celexa) 40 mg PO DAILY [facility] Last Admin: 12/19/17 09:12 Dose: 40 mg Doxepin HCl (Sinequan) 50 mg PO BEDTIME [facility] Last Admin: 12/18/17 21:45 Dose: 50 mg Doxepin HCl (Sinequan) Confirm Administered Dose 50 mg .ROUTE .STK-MED ONE Stop: 12/18/17 21:44 Last Admin: 12/18/17 21:44 Dose: Not Given Furosemide (Lasix) 40 mg IVPUSH NOW ONE Stop: 12/18/17 16:51 Last Admin: 12/18/17 17:55 Dose: Not Given Furosemide (Lasix) 40 mg IVPUSH NOW ONE Stop: 12/18/17 17:16 Last Admin: 12/18/17 17:29 Dose: 40 mg Furosemide (Lasix) 40 mg IVPUSH BIDDIURETIC [facility] Last Admin: 12/20/17 08:35 Dose: Not Given Furosemide (Lasix) 40 mg PO DAILY [facility] Ketorolac Tromethamine (Toradol) 30 mg IVPUSH Q6H PRN PRN Reason: Pain Stop: 12/23/17 23:40 Prednisone (Prednisone) 20 mg PO WITHBREAKFAST [facility] Prednisone (Prednisone) 10 mg PO ONETIME ONE Stop: 12/18/17 17:02 Last Admin: 12/18/17 18:26 Dose: 10 mg Prednisone (Prednisone) 40 mg PO WITHBREAKFAST [facility] Last Admin: 12/20/17 08:25 Dose: 40 mg - Exam General: Alert, Oriented, Cooperative Neck: Supple Lungs: Clear to Auscultation, Normal Respiratory Effort Cardiovascular: Regular Rate, Regular Rhythm, No Murmurs Extremities: Normal Inspection, Normal Range of Motion, Non-Tender, No Pedal Edema Skin: Warm, Dry, Intact Neurological: Normal Gait Psy/Mental Status: Alert, Normal Affect, Normal Mood - Problem List & Annotations (1) Acute exacerbation of chronic obstructive pulmonary disease (COPD) SNOMED Code(s): 288351756 Code(s): J44.1 - CHRONIC OBSTRUCTIVE PULMONARY DISEASE W (ACUTE) EXACERBATION Status: Acute Current Visit: Yes (2) Acute on chronic congestive heart failure SNOMED Code(s): 31425914 Code(s): I50.9 - HEART FAILURE, UNSPECIFIED Status: Acute Current Visit: Yes (3) Morbid obesity SNOMED Code(s): 332399474, 71885691592994 Code(s): E66.01 - MORBID (SEVERE) OBESITY DUE TO EXCESS CALORIES Status: Acute Current Visit: Yes (4) Cardiomyopathy SNOMED Code(s): 92159216 Code(s): I42.9 - CARDIOMYOPATHY, UNSPECIFIED Status: Chronic Priority: Medium Current Visit: Yes (5) Palliative care encounter SNOMED Code(s): 413147290 Code(s): Z51.5 - ENCOUNTER FOR PALLIATIVE CARE Status: Acute Current Visit: Yes (6) Sinusitis SNOMED Code(s): 52418906 Code(s): J32.9 - CHRONIC SINUSITIS, UNSPECIFIED Status: Acute Current Visit: Yes Qualifiers: Sinusitis location: unspecified location Chronicity: acute Recurrence: non-recurrent Qualified Code(s): J01.90 - Acute sinusitis, unspecified - Problem List Review Problem List Initiated/Reviewed/Updated: Yes - My Orders Last 24 Hours: My Active Orders 12/20/17 09:00 Furosemide [Lasix] 40 mg PO BIDDIURETIC 12/21/17 08:00 predniSONE 20 mg PO WITHBREAKFAST - Plan Plan:: 1.. Culture shows strep pneumo. We'll send him home on Augmentin. 2. Discharged today on his normal medicines except for Lasix 40 mg twice a day. Prednisone 20 mg a day for 3 days.
--- NOTE | 2017-12-21 08:20 | PCM.DCSUM1 ---
Discharge Summary - Hospital Course Free Text/Narrative:: Hospital course-patient was placed on Lasix 40 mg twice a day IV, Augmentin and prednisone. Patient progress quite nicely and his breathing got much better. He had never had any leg swelling. His weight dropped probably 5 pounds while he was here his breathing was much better and he was very happy. Hemoglobin nasal congestion and chest congestion. He had no fevers or chills. Blood cultures are negative. Sputum culture grew strep pneumo no antibiotic tested at this time. He had an echo and the preliminary report showed ejection fraction of 25-27%. Full report is not read. He'll be sent home on Augmentin, Lasix 40 mg twice a day, prednisone 10 mg twice a day for 3 days and his normal medications. I told the patient to do daily weights and if he gains 5 pounds he needs to call the clinic and get him. Low-salt diet. 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 Most of this issue I believe was CHF. Brief History: 57-year-old gentleman presented to the outpatient clinic for increasing cough congestion and overall debility malaise. He has known history of cardiomyopathy. States not feeling up to par since July. He did call his PCP who recommended he double his dose of furosemide from 20-40 mg for the next 4 days. He did take 1 extra dose last night but still did not feel his breathing was to par. Presented to the clinic for further evaluation and management. Chest x-ray at the time did show questionable fluid overload as well as exacerbation of COPD with wheezing throughout the precordium. Has diabetes mellitus type 2 does not use insulin controlled on metformin. [facility] in [place] however hasn't been for some time. Last echocardiogram was roughly 2-3 years ago. No history of coronary event or valvular disease. States he's had intermittent sweats and chills. A productive cough with white phlegm. No chest pain or pressure. No interscapular pain neck pain jaw pain or radiation down the arms. Denies any abdominal pain. Did have some nausea but no vomiting. He denies any epistaxis or hemoptysis. Denies sore throat difficulty chewing or swallowing. Denies abdominal pain diarrhea melena or hematochezia. Notes his urine output has been significantly less over the last few days. Denies any dysuria or hematuria. Has not noticed any sudden increased swelling of the lower extremities and is not having any lower extremity redness pain or tenderness. He denies any recent long trips medication changes other than that mentioned or ill contacts. - Discharge Data Discharge Date: 12/21/17 Discharge Disposition: Home, Self-Care 01 Condition: Good - Discharge Diagnosis/Problem(s) (1) Acute exacerbation of chronic obstructive pulmonary disease (COPD) SNOMED Code(s): 401913737 ICD Code: J44.1 - CHRONIC OBSTRUCTIVE PULMONARY DISEASE W (ACUTE) EXACERBATION Status: Acute Current Visit: Yes (2) Acute on chronic congestive heart failure SNOMED Code(s): 99302357 ICD Code: I50.9 - HEART FAILURE, UNSPECIFIED Status: Acute Current Visit : Yes (3) Morbid obesity SNOMED Code(s): 833422031, 53584732195930 ICD Code: E66.01 - MORBID (SEVERE) OBESITY DUE TO EXCESS CALORIES Status: Acute Current Visit: Yes (4) Cardiomyopathy SNOMED Code(s): 72302561 ICD Code: I42.9 - CARDIOMYOPATHY, UNSPECIFIED Status: Chronic Priority: Medium Current Visit: Yes (5) Palliative care encounter SNOMED Code(s): 631104583 ICD Code: Z51.5 - ENCOUNTER FOR PALLIATIVE CARE Status: Acute Current Visit: Yes (6) Sinusitis SNOMED Code(s): 82304836 ICD Code: J32.9 - CHRONIC SINUSITIS, UNSPECIFIED Status: Acute Current Visit: Yes Qualifiers: Sinusitis location: unspecified location Chronicity: acute Recurrence: non-recurrent Qualified Code(s): J01.90 - Acute sinusitis, unspecified - Patient Summary/Data Consults: Consultations 12/18/17 16:48 Respiratory Care Assess and Treatment [CONS] Routine Comment: Physician Instructions: - Patient Instructions Diet: Low Sodium Activity: As Tolerated Driving: May Drive Today Showering/Bathing: May Shower Other/Special Instructions: 1. Recheck with Dr. Eller in 1 week. 2. Daily weights and if his weight goes up 5 pounds he is to call his primary provider. - Discharge Plan Prescriptions/Med Rec: Amoxicillin/Clavulanate K [Augmentin 875-125 MG] 1 tab PO BID #14 tablet Furosemide [Lasix] 40 mg PO BIDDIURETIC #60 tablet Home Medications: Home Meds Aspirin [Adult Low Dose Aspirin EC] 81 mg PO DAILY 12/21/13 [History] Carvedilol 25 mg PO BID 12/21/13 [History] Lisinopril 40 mg PO DAILY 12/21/13 [History] amLODIPine Besylate [Amlodipine Besylate] 5 mg PO DAILY 12/21/13 [History] Albuterol [Ventolin HFA] 2 puff INH Q4H PRN 12/18/17 [History] Albuterol/Ipratropium [DuoNeb 3.0-0.5 MG/3 ML] 3 ml NEB QID PRN 12/18/17 [ History] Cephalexin 500 mg PO TID 12/18/17 [History] Citalopram Hydrobromide [Celexa] 40 mg PO DAILY 12/18/17 [History] Doxepin [SINEquan] 50 mg PO BEDTIME 12/18/17 [History] Fexofenadine [Bekah] 180 mg PO DAILY 12/18/17 [History] HYDROcodone/Ibuprofen [Vicoprofen] 1 tab PO Q6H PRN 12/18/17 [History] metFORMIN [Glucophage] 850 mg PO BIDMEALS 12/18/17 [History] Amoxicillin/Clavulanate K [Augmentin 875-125 MG] 1 tab PO BID #14 tablet [Rx] Furosemide [Lasix] 40 mg PO BIDDIURETIC #60 tablet 12/21/17 [Rx] predniSONE [Prednisone] 10 mg PO BID #6 12/21/17 [Rx] Patient Handouts: Heart Failure, Blood Glucose Monitoring, Adult, Venous Thromboembolism Prevention - Discharge Summary/Plan Comment DC Time >30 min.: No - Patient Data Vitals - Most Recent: Last Vital Signs Temp 97.6 F 12/20/17 23:55 Pulse 65 12/21/17 08:04 Resp 18 12/20/17 23:55 BP 136/60 12/21/17 08:05 Pulse Ox 95 12/20/17 23:55 Weight - Most Recent: 324 lb 2 oz I&O - Last 24 hours: Intake & Output 12/20/17 12/21/17 12/21/17 22:59 06:59 14:59 Intake Total 1500 Output Total 525 Balance 975 Lab Results - Last 24 hrs: Laboratory Results - last 24 hr 12/20/17 12/20/17 12/20/17 Range/Units 06:22 12:12 17:14 POC Glucose 231 H 260 H (80-116) mg/dL NT-Pro-B Natriuret Pep 211 H (<=125) pg/mL [facility] Results - Last 24 hrs: Microbiology 12/18/17 17:30 Aerobic Blood Culture - Preliminary Blood - Venous - Lab Draw NO GROWTH AFTER 2 DAYS Anaerobic Blood Culture - Preliminary NO GROWTH AFTER 2 DAYS 12/18/17 17:25 Aerobic Blood Culture - Preliminary Blood - Venous NO GROWTH AFTER 2 DAYS Anaerobic Blood Culture - Preliminary NO GROWTH AFTER 2 DAYS 12/18/17 21:10 Gram Stain - Final Sputum - Expectorated Sputum Culture - Preliminary Unidentified Organism Med Orders - Current: Current Medications Acetaminophen (Tylenol) 650 mg PO Q4H PRN PRN Reason: Pain (Mild 1-3)/fever Albuterol (Ventolin Hfa) 0 gm INH Q2H PRN PRN Reason: Shortness of Breath Albuterol/Ipratropium (Duoneb 3.0-0.5 Mg/3 Ml) 3 ml NEB QIDRT [facility] Last Admin: 12/21/17 06:24 Dose: 3 ml Albuterol/Ipratropium (Duoneb 3.0-0.5 Mg/3 Ml) 3 ml NEB ASDIRECTED PRN PRN Reason: SHORTNESS OF BREATH Amlodipine Besylate (Norvasc) 5 mg PO DAILY [facility] Last Admin: 12/21/17 08:05 Dose: 5 mg Amoxicillin/Clavulanate Potassium (Augmentin 875 Mg/125 Mg) 1 tab PO BID [facility] Stop: 12/24/17 09:01 Last Admin: 12/21/17 08:04 Dose: 1 tab Aspirin (Halfprin) 81 mg PO DAILY [facility] Last Admin: 12/21/17 08:05 Dose: 81 mg Carvedilol (Coreg) 25 mg PO BID [facility] Last Admin: 12/21/17 08:04 Dose: 25 mg Citalopram Hydrobromide (Celexa) 40 mg PO DAILY [facility] Last Admin: 12/21/17 08:04 Dose: 40 mg Doxepin HCl (Sinequan) 50 mg PO BEDTIME [facility] Last Admin: 12/20/17 20:41 Dose: 50 mg Enoxaparin Sodium (Lovenox) 40 mg SUBCUT Q24H [facility] Last Admin: 12/20/17 20:42 Dose: 40 mg Furosemide (Lasix) 40 mg PO BIDDIURETIC [facility] Last Admin: 12/21/17 07:55 Dose: 40 mg Ibuprofen (Motrin) 600 mg PO Q6H PRN PRN Reason: Pain Insulin Aspart (Novolog) 0 unit SUBCUT TIDMEALS [facility]; Protocol Last Admin: 12/21/17 07:52 Dose: 2 unit Lisinopril (Prinivil) 40 mg PO DAILY [facility] Last Admin: 12/21/17 08:05 Dose: 40 mg Metformin HCl (Glucophage) 850 mg PO BIDMEALS [facility] Last Admin: 12/21/17 07:54 Dose: 850 mg Pantoprazole Sodium (Protonix) 40 mg PO ACBREAKFAST [facility] Last Admin: 12/21/17 07:54 Dose: 40 mg Prednisone (Prednisone) 20 mg PO WITHBREAKFAST [facility] Last Admin: 12/21/17 07:56 Dose: 20 mg Sodium Chloride (Saline Flush) 10 ml FLUSH ASDIRECTED PRN PRN Reason: Keep Vein Open Last Admin: 12/19/17 14:49 Dose: 10 ml Zolpidem Tartrate (Ambien) 5 mg PO BEDTIME PRN PRN Reason: Sleep Discontinued Medications Amoxicillin/Clavulanate Potassium (Augmentin 875 Mg/125 Mg) 1 tab PO NOW ONE Stop: 12/18/17 17:06 Last Admin: 12/18/17 18:25 Dose: 1 tab Citalopram Hydrobromide (Celexa) 40 mg PO DAILY [facility] Last Admin: 12/19/17 09:12 Dose: 40 mg Doxepin HCl (Sinequan) 50 mg PO BEDTIME [facility] Last Admin: 12/18/17 21:45 Dose: 50 mg Doxepin HCl (Sinequan) Confirm Administered Dose 50 mg .ROUTE .STK-MED ONE Stop: 12/18/17 21:44 Last Admin: 12/18/17 21:44 Dose: Not Given Furosemide (Lasix) 40 mg IVPUSH NOW ONE Stop: 12/18/17 16:51 Last Admin: 12/18/17 17:55 Dose: Not Given Furosemide (Lasix) 40 mg IVPUSH NOW ONE Stop: 12/18/17 17:16 Last Admin: 12/18/17 17:29 Dose: 40 mg Furosemide (Lasix) 40 mg IVPUSH BIDDIURETIC [facility] Last Admin: 12/20/17 08:35 Dose: Not Given Furosemide (Lasix) 40 mg PO DAILY [facility] Ketorolac Tromethamine (Toradol) 30 mg IVPUSH Q6H PRN PRN Reason: Pain Stop: 12/23/17 23:40 Prednisone (Prednisone) 20 mg PO WITHBREAKFAST [facility] Prednisone (Prednisone) 10 mg PO ONETIME ONE Stop: 12/18/17 17:02 Last Admin: 12/18/17 18:26 Dose: 10 mg Prednisone (Prednisone) 40 mg PO WITHBREAKFAST [facility] Last Admin: 12/20/17 08:25 Dose: 40 mg
== END 2017-12-21 09:56 | disposition home or self-care (01) | DRG 292 ==
LOC: FB.MS 14:50
PROVIDERS: ADMIT Family Medicine; ATTEND Family Medicine
DX: I11.0 Hypertensive heart disease with heart failure (principal); J44.1 Chronic obstructive pulmonary disease with (acute) exacerbation; Z68.41 Body mass index [BMI] 40.0-44.9, adult; I50.9 Heart failure, unspecified; J01.90 Acute sinusitis, unspecified; I42.9 Cardiomyopathy, unspecified; E11.69 Type 2 diabetes mellitus with other specified complication; Z79.84 Long term (current) use of oral hypoglycemic drugs; F41.9 Anxiety disorder, unspecified; Z87.891 Personal history of nicotine dependence; E66.01 Morbid (severe) obesity due to excess calories; Z79.82 Long term (current) use of aspirin; Z79.52 Long term (current) use of systemic steroids; Z91.018 Allergy to other foods
CPT/HCPCS: 36415; 36600; 80053; 81001; 82803; 82962; 83735; 83880; 84100; 84443; 84484; 85025; 86140; 87040; 87070; 87205; 93308; 94150; 94640; A9270-GY; J1650; J1940; J7050; J7620

== ENCOUNTER 2018-03-03 19:27 | Inpatient (IN) | payer MEDICARE ==
[2018-03-03] MEDS ORDERED: Sodium Chloride 0.9% 500 ML IV ONE (19:58)
[2018-03-03] MEDS: Sodium Chloride 0.9% 10 ML Syringe FLUSH PRN (20:03)
[2018-03-03] MEDS ORDERED: Alum Hydroxide/Mag Hydroxide 15 ML, Lidocaine 2% 15 ML PO ONE ×4 (20:36→22:26)
[2018-03-03] MEDS ORDERED: Ondansetron 4 MG/2 ML SDV IVPUSH ONE ×2 (20:36→20:49)
[2018-03-03] MEDS ORDERED: Aluminum Hydroxide/Magnesium Hydroxide Susp 30 ML Cup ONE (20:43)
[2018-03-03] MEDS ORDERED: Sodium Chloride 0.9% 1,000 ML IV SCH (20:45)
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
[2018-03-03] MEDS ORDERED: Albuterol/Ipratropium 3.0-0.5 MG/3 ML Neb Soln INH PRN (23:58)
[2018-03-04] MEDS ORDERED: Albuterol/Ipratropium 3.0-0.5 MG/3 ML Neb Soln NEB STA (00:30)
[2018-03-04] MEDS ORDERED: Acetaminophen Soln 650 MG/20.3 ML UD Cup PO ONE (00:39)
[2018-03-04] MEDS ORDERED: Levofloxacin/Dextrose 5%-Water 750 MG in Premix Bag 1 BAG IV SCH (08:15)
[2018-03-04] MEDS ORDERED: Albuterol 8 GM Inhaler *PTOM INH PRN (08:15)
[2018-03-04] MEDS ORDERED: Sodium Chloride 0.9% 1,000 ML IV SCH (08:15)
[2018-03-04] MEDS ORDERED: Albuterol/Ipratropium 3.0-0.5 MG/3 ML Neb Soln NEB PRN (08:15)
[2018-03-04] MEDS ORDERED: Alum Hydroxide/Mag Hydroxide 15 ML, Lidocaine 2% 15 ML PO ONE ×2 (08:20)
[2018-03-04] MEDS ORDERED: Pantoprazole 40 MG Tab.CR PO SCH (08:30)
[2018-03-04] MEDS ORDERED: Acetaminophen 325 MG Tab PO PRN (08:33)
[2018-03-04] MEDS: Sodium Chloride 0.9% 10 ML Syringe FLUSH PRN (08:49)
[2018-03-04] MEDS ORDERED: amLODIPine 10 MG Tab *PTOM PO SCH (09:00)
[2018-03-04] MEDS ORDERED: SACUBITRIL PO SCH (09:00)
[2018-03-04] MEDS ORDERED: BUMETANIDE 2 MG PO SCH (09:00)
[2018-03-04] MEDS ORDERED: Carvedilol 25 MG Tab *PTOM PO SCH (09:00)
[2018-03-04] MEDS ORDERED: VALSARTAN PO SCH (09:00)
[2018-03-04] MEDS ORDERED: CITALOPRAM 40 MG PO SCH (09:00)
[2018-03-04] MEDS ORDERED: FEXOFENADINE 180 MG PO SCH (09:00)
[2018-03-04] MEDS ORDERED: Potassium Chloride 10 MEQ Tab.ER PO SCH (09:00)
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
[2018-03-04] MEDS ORDERED: Piperacillin/Tazobactam 4.5 GM in Sodium Chloride 0.9% 100 ML IV SCH ×3 (10:00→16:00)
--- NOTE | 2018-03-04 11:00 | CR ---
INDICATION: Fever, cough. CHEST: Two upright portable views of the chest were obtained 03/03/2018 and compared with 04/14/2013 and 12/21/2013. Linear density is again noted at the lower lung field on the left. Lateral pleural thickening is present on the left and to a much lesser extent on the right, compatible with pleural fibrosis. Heavy markings in general suggest a mild degree of pulmonary fibrosis. Interstitial changes may be on the basis of fibrosis also, although the upper lung field pulmonary vasculature is somewhat prominent, and with the somewhat enlarged appearance of the heart, raises question of CHF with interstitial lung edema. No consolidating pneumonia or effusion was seen; however, with the heavy markings at the lung bases especially, it is difficult to exclude minimal patchy bronchopneumonia superimposed on fibrosis. IMPRESSION: 1. No definite evidence of pneumonia identified; however, the possibility of patchy pneumonia at the lung bases superimposed on fibrosis cannot be excluded. 2. ASHD with mild cardiomegaly, possible CHF, and interstitial lung edema. MTDD
[2018-03-04] MEDS ORDERED: Iopamidol 755 MG/ML 150 ML Bottle IV ONE (11:23)
[2018-03-04] MEDS ORDERED: Diatrizoate Meglumine/Diatrizoate Sodium 37% 30 ML Bottle PO SCH (11:30)
--- NOTE | 2018-03-04 12:59 | PCM.SN ---
- Free Text/Narrative Note: CT scan showed pyelonephritis with no diverticulitis, pancreatitis or cholecystitis. This is a radiology interpretation. [place] to be septic so we'll transfer him to [place] by ambulance. Receiving doctor is Dr. Shaver on his current anabolic regimen.
--- NOTE | 2018-03-04 13:03 | PCM.DCSUM1 ---
Discharge Summary - Hospital Course Free Text/Narrative:: Hospital course-when I saw the patient the morning and started on Levaquin although a site of infection was not seen. Patient has had a back and epigastric pain. CBC was done again that shows some increase neutrophils but the white count was normal. CRP was elevated as well as lactic acid. He was afebrile although he had a temperature 100.4 in the ER last night. The lab called back and said to blood cultures are positive for gram negative bacilli. He was in the hospital with the last couple weeks so ice to stop the Levaquin and put him on Zosyn. CT scan was done his abdomen is less and showed pyelonephritis. Chest x-ray was also done and radiology result is pending. Patient felt to be septic so I will transfer him to [place] by ambulance. Dr. Neris dasilva. Brief History: This is a 58-year-old male patient that started having shaking chills yesterday afternoon while he was sitting watching TV. He said he might felt warm yesterday but he wasn't sure. He said he had some dry heaves and is stomach started hurting again. He was seen recently in [place] for a bleeding ulcer. He is transferred there because he has CHF and ejection fraction less than 30%. I reviewed the scope that showed nonbleeding ulcer and he was sent home on proton pump inhibitors. He said he's had a little cough but not much. He denies nasal congestion, sore throat, ear pain, chest pain, diarrhea, hematochezia, melena, dysuria, pyuria, hematuria. Patient states he had a UTI 2 months ago. Looked up his last colonoscopy year 2010 he did have diverticulosis. He says his pain is epigastric like when he is having pain recently had the ulcer. He is not using any alcohol or NSAIDs. Patient had a headache with the symptoms. He was given a GI cocktail and Tylenol the ER and his headache and stomach pain went away. Patient's epigastric pain radiates to the right lower back. Diagnosis: Stroke: No Modified Melchor Scale: No Symptoms at All Modified [place] Scale Score: 0 - Discharge Data Discharge Date: 03/04/18 Discharge Disposition: Home, Self-Care 01 Condition: Fair - Discharge Diagnosis/Problem(s) (1) Gastric ulcer SNOMED Code(s): 063947477 ICD Code: K25.9 - GASTRIC ULCER, UNSP ACUTE OR CHRONIC, W/O HEMOR OR PERF Status: Acute Current Visit: Yes (2) Congestive heart failure SNOMED Code(s): 27121234 ICD Code: I50.9 - HEART FAILURE, UNSPECIFIED Status: Acute Current Visit : Yes Qualifiers: Heart failure type: systolic (3) Diabetes mellitus type 2 in obese SNOMED Code(s): 62638809 ICD Code: E11.69 - TYPE 2 DIABETES MELLITUS WITH OTHER SPECIFIED COMPLICATION ; E66.9 - OBESITY, UNSPECIFIED Status: Acute Current Visit: No (4) Morbid obesity SNOMED Code(s): 097855326 ICD Code: E66.01 - MORBID (SEVERE) OBESITY DUE TO EXCESS CALORIES Status: Acute Current Visit: No (5) Palliative care encounter SNOMED Code(s): 461110044 ICD Code: Z51.5 - ENCOUNTER FOR PALLIATIVE CARE Status: Acute Current Visit: No (6) Cardiomyopathy SNOMED Code(s): 97926566 ICD Code: I42.9 - CARDIOMYOPATHY, UNSPECIFIED Status: Chronic Priority: Medium Current Visit: No (7) Sepsis SNOMED Code(s): 37822893 ICD Code: A41.9 - SEPSIS, UNSPECIFIED ORGANISM Status: Acute Current Visit: Yes Qualifiers: Sepsis type: sepsis due to unspecified organism Qualified Code(s): A41.9 - Sepsis, unspecified organism (8) Pyelonephritis SNOMED Code(s): 20678972 ICD Code: N12 - TUBULO-INTERSTITIAL NEPHRITIS, NOT SPCF ACUTE OR CHRONIC Status: Acute Current Visit: Yes - Patient Summary/Data Consults: Consultations 03/04/18 08:59 Consult to Physician [CONS] Routine Consulting Provider: León Paul Call Completed to Consulting Physician: Yes - Patient Instructions Diet: NPO Activity: As Tolerated Driving: Do Not Drive Showering/Bathing: No Showering Other/Special Instructions: 1. Transfer to [place] by ambulance. - Discharge Plan Home Medications: Home Meds Carvedilol 25 mg PO BID 12/21/13 [History] amLODIPine Besylate [Amlodipine Besylate] 5 mg PO DAILY 12/21/13 [History] Albuterol [Ventolin HFA] 2 puff INH Q4H PRN 12/18/17 [History] Albuterol/Ipratropium [DuoNeb 3.0-0.5 MG/3 ML] 3 ml NEB QID PRN 12/18/17 [ History] Citalopram Hydrobromide [Celexa] 40 mg PO DAILY 12/18/17 [History] Doxepin [SINEquan] 50 mg PO BEDTIME 12/18/17 [History] Fexofenadine [Bekah] 180 mg PO DAILY 12/18/17 [History] metFORMIN [Glucophage] 850 mg PO BIDMEALS 12/18/17 [History] Bumetanide [Bumex] 2 mg PO BID 03/03/18 [History] Omeprazole 20 mg PO BIDAC 03/03/18 [History] Potassium Chloride 10 meq PO DAILY 03/03/18 [History] Sacubitril/Valsartan [Entresto 49 mg-51 mg Tablet] 1 each PO BID 03/03/18 [ History] Acetaminophen [Tylenol] 650 mg PO Q4H PRN tablet 03/04/18 [Rx] Hydrocodone/Acetaminophen [Hydrocodon-Acetaminoph 7.5-325] 1 each PO Q6H PRN [History] Piperacillin/Tazobactam [Zosyn] 4.5 gm IV Q6H vial 03/04/18 [Rx] Patient Handouts: Fall Prevention in Hospitals, Adult, Venous Thromboembolism Prevention Forms: ED Department Discharge Referrals: Lorenzo Garcia MD [Primary Care Provider] - - Discharge Summary/Plan Comment DC Time >30 min.: Yes (30 minutes in going over her x-ray reports, calling specialist and transfer) - Patient Data Vitals - Most Recent: Last Vital Signs Temp 99.1 F 03/04/18 10:00 Pulse 78 03/04/18 10:00 Resp 15 03/04/18 12:15 BP 139/64 03/04/18 12:15 Pulse Ox 97 03/04/18 12:15 Weight - Most Recent: 318 lb 6.4 oz I&O - Last 24 hours: Intake & Output 03/03/18 03/04/18 03/04/18 22:59 06:59 14:59 Intake Total 1012 150 Output Total 380 Balance 632 150 Lab Results - Last 24 hrs: Laboratory Results - last 24 hr 03/03/18 03/03/18 03/03/18 Range/Units 19:45 19:45 19:45 WBC 7.5 (4.5-12.0) X10-3/uL RBC 4.79 (4.30-5.75) x10(6)uL Hgb 14.0 (11.5-15.5) g/dL Hct 40.7 (30.0-51.3) % MCV 85.0 (80-96) fL MCH 29.2 (27.7-33.6) pg MCHC 34.3 (32.2-35.4) g/dL RDW 12.7 (11.5-15.5) % Plt Count 238 (125-369) X10(3)uL MPV 9.1 (7.4-10.4) fL Add Manual Diff Yes Neutrophils % (Manual) 89 H (46-82) % Band Neutrophils % 2 (0-6) % Lymphocytes % (Manual) 6 L (13-37) % Monocytes % (Manual) 3 L (4-12) % PT 9.6 (8.7-11.1) INR 0.99 (0.89-1.13) Sodium 140 (135-145) mmol/L Potassium 3.5 (3.5-5.3) mmol/L Chloride 101 (100-110) mmol/L Carbon Dioxide 28 (21-32) mmol/L BUN 19 H D (7-18) mg/dL Creatinine 1.2 (0.70-1.30) mg/dL Est Cr Clr Drug Dosing 78.01 mL/min Estimated GFR (MDRD) > 60 (>60) BUN/Creatinine Ratio 15.8 (9-20) Glucose 139 H (80-116) mg/dL Lactic Acid (0.4-2.2) mmol/L Calcium 9.2 (8.6-10.2) mg/dL Total Bilirubin 0.7 (0.1-1.3) mg/dL Direct Bilirubin 0.17 (0.10-0.20) mg/dL AST 24 D (5-25) IU/L ALT 57 H (12-36) U/L Alkaline Phosphatase 54 L (56-112) IU/L Troponin I (<0.017-0.056) ng/mL C-Reactive Protein (0.5-0.9) mg/dL NT-Pro-B Natriuret Pep (<=125) pg/mL Total Protein 7.3 (6.0-8.0) g/dL Albumin 3.6 (3.5-5.2) g/dL Amylase 54 (25-115) U/L TSH, Ultra Sensitive (0.36-3.74) IU/mL Urine Color (YELLOW) Urine Appearance (CLEAR) Urine pH (5.0-6.5) Ur Specific [place] (1.010-1.025) Urine Protein (NEGATIVE) mg/dL Urine Glucose (UA) (NEGATIVE) mg/dL Urine Ketones (NEGATIVE) mg/dL Urine Occult Blood (NEGATIVE) Urine Nitrite (NEGATIVE) Urine Bilirubin (NEGATIVE) Urine Urobilinogen (NEGATIVE) mg/dL Ur Leukocyte Esterase (NEGATIVE) Urine RBC (0) Urine WBC (0) Ur Squamous Epith Cells (NS,R,O) Urine Bacteria (NS) Digoxin (0.9-2.0) ng/mL 03/03/18 03/03/18 03/04/18 Range/Units 19:45 19:45 03:55 WBC (4.5-12.0) X10-3/uL RBC (4.30-5.75) x10(6)uL Hgb (11.5-15.5) g/dL Hct (30.0-51.3) % MCV (80-96) fL MCH (27.7-33.6) pg MCHC (32.2-35.4) g/dL RDW (11.5-15.5) % Plt Count (125-369) X10(3)uL MPV (7.4-10.4) fL Add Manual Diff Neutrophils % (Manual) (46-82) % Band Neutrophils % (0-6) % Lymphocytes % (Manual) (13-37) % Monocytes % (Manual) (4-12) % PT (8.7-11.1) INR (0.89-1.13) Sodium (135-145) mmol/L Potassium (3.5-5.3) mmol/L Chloride (100-110) mmol/L Carbon Dioxide (21-32) mmol/L BUN (7-18) mg/dL Creatinine (0.70-1.30) mg/dL Est Cr Clr Drug Dosing mL/min Estimated GFR (MDRD) (>60) BUN/Creatinine Ratio (9-20) Glucose (80-116) mg/dL Lactic Acid 2.9 H (0.4-2.2) mmol/L Calcium (8.6-10.2) mg/dL Total Bilirubin (0.1-1.3) mg/dL Direct Bilirubin (0.10-0.20) mg/dL AST (5-25) IU/L ALT (12-36) U/L Alkaline Phosphatase (56-112) IU/L Troponin I < 0.017 L (<0.017-0.056) ng/mL C-Reactive Protein (0.5-0.9) mg/dL NT-Pro-B Natriuret Pep 860 H (<=125) pg/mL Total Protein (6.0-8.0) g/dL Albumin (3.5-5.2) g/dL Amylase (25-115) U/L TSH, Ultra Sensitive 3.52 (0.36-3.74) IU/mL Urine Color Yellow (YELLOW) Urine Appearance Slightly cloudy (CLEAR) Urine pH 5.0 (5.0-6.5) Ur Specific [place] 1.020 (1.010-1.025) Urine Protein Negative (NEGATIVE) mg/dL Urine Glucose (UA) Normal (NEGATIVE) mg/dL Urine Ketones Negative (NEGATIVE) mg/dL Urine Occult Blood Negative (NEGATIVE) Urine Nitrite Negative (NEGATIVE) Urine Bilirubin Negative (NEGATIVE) Urine Urobilinogen Normal (NEGATIVE) mg/dL Ur Leukocyte Esterase Moderate H (NEGATIVE) Urine RBC 0-5 (0) Urine WBC 5-10 (0) Ur Squamous Epith Cells Occasional (NS,R,O) Urine Bacteria Moderate H (NS) Digoxin < 0.2 L (0.9-2.0) ng/mL 03/04/18 03/04/18 03/04/18 Range/Units 08:25 08:25 08:25 WBC 9.1 (4.5-12.0) X10-3/uL RBC 4.21 L (4.30-5.75) x10(6)uL Hgb 12.3 (11.5-15.5) g/dL Hct 35.9 (30.0-51.3) % MCV 85.2 (80-96) fL MCH 29.2 (27.7-33.6) pg MCHC 34.3 (32.2-35.4) g/dL RDW 13.2 (11.5-15.5) % Plt Count 196 (125-369) X10(3)uL MPV 9.0 (7.4-10.4) fL Add Manual Diff Yes Neutrophils % (Manual) 84 H (46-82) % Band Neutrophils % (0-6) % Lymphocytes % (Manual) 8 L (13-37) % Monocytes % (Manual) 8 (4-12) % PT (8.7-11.1) INR (0.89-1.13) Sodium 138 (135-145) mmol/L Potassium 3.6 (3.5-5.3) mmol/L Chloride 101 (100-110) mmol/L Carbon Dioxide 32 (21-32) mmol/L BUN 21 H (7-18) mg/dL Creatinine 1.2 (0.70-1.30) mg/dL Est Cr Clr Drug Dosing 78.01 mL/min Estimated GFR (MDRD) > 60 (>60) BUN/Creatinine Ratio 17.5 (9-20) Glucose 174 H (80-116) mg/dL Lactic Acid (0.4-2.2) mmol/L Calcium 8.6 (8.6-10.2) mg/dL Total Bilirubin (0.1-1.3) mg/dL Direct Bilirubin (0.10-0.20) mg/dL AST (5-25) IU/L ALT (12-36) U/L Alkaline Phosphatase (56-112) IU/L Troponin I (<0.017-0.056) ng/mL C-Reactive Protein 6.3 H* (0.5-0.9) mg/dL NT-Pro-B Natriuret Pep (<=125) pg/mL Total Protein (6.0-8.0) g/dL Albumin (3.5-5.2) g/dL Amylase (25-115) U/L TSH, Ultra Sensitive (0.36-3.74) IU/mL Urine Color (YELLOW) Urine Appearance (CLEAR) Urine pH (5.0-6.5) Ur Specific [place] (1.010-1.025) Urine Protein (NEGATIVE) mg/dL Urine Glucose (UA) (NEGATIVE) mg/dL Urine Ketones (NEGATIVE) mg/dL Urine Occult Blood (NEGATIVE) Urine Nitrite (NEGATIVE) Urine Bilirubin (NEGATIVE) Urine Urobilinogen (NEGATIVE) mg/dL Ur Leukocyte Esterase (NEGATIVE) Urine RBC (0) Urine WBC (0) Ur Squamous Epith Cells (NS,R,O) Urine Bacteria (NS) Digoxin (0.9-2.0) ng/mL [facility] Results - Last 24 hrs: Microbiology 03/03/18 19:50 Anaerobic Blood Culture - Preliminary Blood - Venous - Lab Draw Gram Negative Rods 03/03/18 19:45 Aerobic Blood Culture - Preliminary Blood - Venous Gram Negative Rods Anaerobic Blood Culture - Preliminary Gram Negative Rods Med Orders - Current: Current Medications Acetaminophen (Tylenol) 650 mg PO Q4H PRN PRN Reason: analgesia/fever Last Admin: 03/04/18 09:32 Dose: 650 mg Albuterol (Ventolin Hfa) 0 gm INH Q4H PRN PRN Reason: Shortness of Breath Last Admin: 03/04/18 09:24 Dose: 2 puff Albuterol/Ipratropium (Duoneb 3.0-0.5 Mg/3 Ml) 3 ml NEB QID PRN PRN Reason: Shortness of Breath Amlodipine Besylate (Norvasc) 5 mg PO DAILY [facility] Bumetanide (Bumex) 2 mg PO BIDDIURETIC [facility] Carvedilol (Coreg) 25 mg PO BID [facility] Citalopram Hydrobromide (Celexa) 40 mg PO DAILY [facility] Diatrizoate Meglum/Diatrizoate Sod (Gastrografin 37%) 30 ml PO . DIRECTED [facility] Last Admin: 03/04/18 11:55 Dose: 30 ml Doxepin HCl (Sinequan) 50 mg PO BEDTIME [facility] Fexofenadine HCl (Bekah) 180 mg PO DAILY [facility] Sodium Chloride (Normal Saline) 1,000 mls @ 125 mls/hr IV ASDIRECTED [facility] Last Admin: 03/04/18 08:57 Dose: 125 mls/hr Piperacillin Sod/Tazobactam (Sod 4.5 gm/ Sodium Chloride) 100 mls @ 200 mls/hr IV Q6H [facility] Metformin HCl (Glucophage) 850 mg PO BIDMEALS [facility] Last Admin: 03/04/18 09:21 Dose: Not Given Sacubitril/Valsartan [Entresto 49 Mg-51 Mg Tablet*Ptom 1 each PO BID [facility] Last Admin: 03/04/18 09:24 Dose: 1 each Pantoprazole Sodium (Protonix) 40 mg PO BIDAC [facility] Last Admin: 03/04/18 09:21 Dose: 40 mg Potassium Chloride (Klor-Con 10) 10 meq PO DAILY [facility] Last Admin: 03/04/18 09:25 Dose: 10 meq Sodium Chloride (Saline Flush) 10 ml FLUSH ASDIRECTED PRN PRN Reason: Keep Vein Open Last Admin: 03/04/18 08:49 Dose: 10 ml Discontinued Medications Acetaminophen (Tylenol) 650 mg PO ONETIME ONE Stop: 03/04/18 00:40 Last Admin: 03/04/18 01:06 Dose: 650 mg Al Hydroxide/Mg Hydroxide (Mag-Al Susp) Confirm Administered Dose 30 ml .ROUTE .STK-MED ONE Stop: 03/03/18 20:44 Last Admin: 03/04/18 00:03 Dose: Not Given Albuterol/Ipratropium (Duoneb 3.0-0.5 Mg/3 Ml) 3 ml INH ONETIME PRN PRN Reason: Shortness Of Breath/wheezing Albuterol/Ipratropium (Duoneb 3.0-0.5 Mg/3 Ml) 3 ml NEB ONETIME STA Stop: 03/04/18 00:31 Last Admin: 03/04/18 00:46 Dose: 3 ml Amlodipine Besylate (Norvasc) 5 mg PO DAILY [facility] Last Admin: 03/04/18 09:25 Dose: 5 mg Bumetanide (Bumex) 2 mg PO BIDDIURETIC [facility] Last Admin: 03/04/18 09:22 Dose: 2 mg Carvedilol (Coreg) 25 mg PO BID [facility] Last Admin: 03/04/18 09:23 Dose: 25 mg Citalopram Hydrobromide (Celexa) 40 mg PO DAILY [facility] Last Admin: 03/04/18 09:22 Dose: 40 mg Al Hydroxide/Mg Hydroxide 15 (ml/ Lidocaine HCl 15 ml) 0 ml PO ONETIME ONE Stop: 03/03/18 20:37 Last Admin: 03/03/18 20:50 Dose: 30 ml Al Hydroxide/Mg Hydroxide 15 (ml/ Lidocaine HCl 15 ml) 0 ml PO ONETIME ONE Stop: 03/03/18 22:27 Last Admin: 03/03/18 22:38 Dose: 15 ml Al Hydroxide/Mg Hydroxide 15 (ml/ Lidocaine HCl 15 ml) 0 ml PO ONETIME ONE Stop: 03/04/18 08:21 Last Admin: 03/04/18 08:47 Dose: 15 ml Fexofenadine HCl (Bekah) 180 mg PO DAILY [facility] Last Admin: 03/04/18 09:21 Dose: 180 mg Sodium Chloride (Normal Saline) 500 mls @ 999 mls/hr IV .BOLUS ONE Stop: 03/03/18 20:28 Last Admin: 03/03/18 19:50 Dose: 999 mls/hr Sodium Chloride (Normal Saline) 1,000 mls @ 125 mls/hr IV ASDIRECTED [facility] Last Admin: 03/03/18 20:57 Dose: 125 mls/hr Levofloxacin/Dextrose 750 mg/ (Premix) 150 mls @ 100 mls/hr IV Q24H [facility] Last Admin: 03/04/18 09:04 Dose: 100 mls/hr Piperacillin Sod/Tazobactam (Sod 4.5 gm/ Sodium Chloride) 100 mls @ 200 mls/hr IV Q6H [facility] Last Admin: 03/04/18 10:56 Dose: 200 mls/hr Iopamidol (Isovue-370 (76%)) 150 ml IV ONETIME ONE Stop: 03/04/18 11:24 Last Admin: 03/04/18 11:55 Dose: 150 ml Doxepin [Sinequan] (50 Mg *Ptom) 50 mg PO BEDTIME [facility] Ondansetron HCl (Zofran) 8 mg IVPUSH ONETIME ONE Stop: 03/03/18 20:37 Last Admin: 03/03/18 20:49 Dose: Not Given Ondansetron HCl (Zofran) 8 mg IVPUSH ONETIME ONE Stop: 03/03/18 20:50 Last Admin: 03/03/18 20:57 Dose: 8 mg
--- NOTE | 2018-03-04 13:05 | CR ---
INDICATION: Fever. CHEST: Two PA views and a lateral view of the chest 03/04/2018 were compared with 03/03/2018 and 12/21/2013. A linear density is again noted at the left heart border, compatible with fibrosis. The heart appears sightly enlarged. Pulmonary vasculature does not appear to be significantly prominent at this time - no evidence of CHF is seen. Degenerative changes are noted in the spine with hypertrophic lipping anteriorly. Calcification is noted in the arch of the aorta. Lateral pleural thickening is noted, compatible with pleural fibrosis. Markings are similar to previous examinations, compatible with mild degree of pulmonary fibrosis in the mid to lower lung hendrix, without a definite active infiltrate or effusion identified. It is noted that, on the lateral view, there is limitation in that the right posterior sulcus is not fully included on the study. Overlying EKG leads are noted. IMPRESSION: 1. No definite acute process. 2. Pulmonary fibrosis and pleural fibrosis. 3. ASHD with mild cardiomegaly. 4. DJD spine. MTDD
--- NOTE | 2018-03-04 13:32 | CT ---
INDICATION: Abdominal pain, history of PUD, fever. CT ABDOMEN AND PELVIS WITH CONTRAST: Spiral 2.5 mm axial sections were obtained through the abdomen and pelvis with oral and IV contrast (150 mL Isovue 370 at 1.3 mL/second) with sagittal and coronal reconstructions, 2017, and were compared with CT of the chest, upper abdomen included on that study, dated 04/14/2013. Total exam DLP = 2,087.11 mGy-cm. Linear densities are noted at the right lower lobe near the lung base and likely represent either fibrotic strands or linear atelectasis. No definite pneumonia is seen in that area. Similar findings are noted in the left lower lobe and lingula. The heart appears somewhat enlarged. The pericardium appears to be normal. There is question of some tiny calculi - gravel in the gallbladder, which could be confirmed by ultrasound as felt to be clinically necessary. The liver is slightly prominent in appearance as to size and also slightly low in density, raising question of fatty infiltration. The adrenal glands appear to be normal. The spleen and pancreas appear to be fairly normal. An indistinct area of low density in the inferior aspect of the spleen is noted of questionable significance and may be artifactual. The pancreas appears normal. The common bile duct appeared normal in caliber. Renal fascial thickening is noted with a focal decreased density compatible with a cyst in the anterior cortex of the upper middle pole of the right kidney. At the middle pole of the right kidney, there is some patchy decreased density in the cortex, which is of questionable significance and could be related to scarring or possibly pyelonephritis. This possibility should be correlated clinically. The appearance could also be on the basis of cystic changes and post pyelonephritis scarring. The left kidney showed evidence of a small cystic structure in the lateral cortex of the mid pole with overlying loss of cortex suggesting an area of scarring and an additional posterior low density lesion of small size in the mid pole cortex on the left also seen. A very tiny low density lesion is noted in the upper pole cortex medially on the left. No evidence of obstructive uropathy was seen. Irregularities of the cortex at the right kidney are also compatible with areas of scarring. The appendix appeared normal, visualized on axial images #125 through #137. No evidence of appendicitis was suggested. No finding to strongly suggest cholecystitis is seen. Calcifications are noted in the aorta, proximal renal artery on the right, iliac arteries, and right femoral artery. No definite hernia was seen. No evidence of bowel obstruction was identified. No free air was noted. The gastric mucosa appears to be fairly normal. No definite duodenal abnormality was seen. No retroperitoneal mass was identified. Urinary bladder was unremarkable. Prostate was not enlarged. There are some minimal calcifications in the prostate. Descending and sigmoid diverticulosis is noted without evidence of diverticulitis. Sigmoid colon is somewhat redundant. Degenerative hypertrophic changes are noted off vertebral bodies at the thoracolumbar spine and in the lumbar spine to a lesser degree with possible disk disease at L4-5, there being less than full height suggested of the disk space at that level. IMPRESSION: 1. Probable multiple cystic structures in the kidneys but difficult to entirely exclude pyelonephritis. There is evidence of cortical scarring at both kidneys, perhaps more prominent on the right. 2. Minimal gravel difficult to entirely exclude in the gallbladder. No definite calculi were seen, however, in the gallbladder, and no evidence of cholecystitis is seen. 3. Degenerative changes and disk disease, as noted above, in thoracolumbar spine. 4. ASD. 5. ASHD. 6. 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 7. Probable fibrotic changes at both lung bases with linear densities seen. 8. The appendix appeared normal. 9. Findings suggest fatty infiltration of the liver. Report was called to Dr. Turner at 1228 hours on 03/04/2018. [facility]
[2018-03-04] MEDS ORDERED: Bumetanide 2 MG Tab PO SCH (14:00)
[2018-03-04] MEDS ORDERED: Carvedilol 25 MG Tab PO SCH (21:00)
[2018-03-04] MEDS ORDERED: DOXEPIN 50 MG PO SCH (21:00)
[2018-03-04] MEDS ORDERED: Doxepin 25 MG Cap PO SCH (21:00)
[2018-03-05] MEDS ORDERED: amLODIPine 5 MG Tab PO SCH (09:00)
== END 2018-03-04 13:30 | DRG 872 ==
LOC: FB.ED 19:27 → FB.MS 23:58 → OBSVTOIN 03-04 09:58 → FB.ICU 03-04 09:59
PROVIDERS: ADMIT Family Medicine; ATTEND Family Medicine
DX: A41.9 Sepsis, unspecified organism (principal); N12 Tubulo-interstitial nephritis, not specified as acute or chronic; I42.9 Cardiomyopathy, unspecified; Z68.41 Body mass index [BMI] 40.0-44.9, adult; Z51.5 Encounter for palliative care; E11.9 Type 2 diabetes mellitus without complications; Z79.84 Long term (current) use of oral hypoglycemic drugs; E88.81 Metabolic syndrome and other insulin resistance; I11.0 Hypertensive heart disease with heart failure; I50.9 Heart failure, unspecified; R51 Headache; R53.1 Weakness; R50.9 Fever, unspecified; R10.13 Epigastric pain; Z87.891 Personal history of nicotine dependence; Z99.81 Dependence on supplemental oxygen; E66.01 Morbid (severe) obesity due to excess calories; M54.9 Dorsalgia, unspecified; M19.90 Unspecified osteoarthritis, unspecified site; G89.29 Other chronic pain; F41.9 Anxiety disorder, unspecified; J30.9 Allergic rhinitis, unspecified; K25.9 Gastric ulcer, unspecified as acute or chronic, without hemorrhage or perforation; Z91.018 Allergy to other foods
CPT/HCPCS: 36415 ×2; 71045; 74177; 80048 ×2; 80076; 80162; 81001; 82150; 83605; 83880; 84443; 84484; 85025 ×2; 85610; 86140; 87040 ×2; 87086; 93005; 94640; 96361; 96374; 99285; A9270 ×16; J1956; J2405; J7030 ×2; J7040; J7050 ×2; J7620; 71046; 87077; 87088; 87186; J2543; Q9963; Q9967

== ENCOUNTER 2019-02-21 14:31 | Inpatient (IN) | payer MEDICARE ==
[2019-02-21] MEDS ORDERED: Sodium Chloride 0.9% 10 ML Syringe FLUSH PRN (14:35)
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
[2019-02-21] MEDS: Sodium Chloride 0.9% 1,000 ML IV SCH ×2 (15:00→20:14)
[2019-02-21] MEDS ORDERED: Lidocaine 2% Jelly 30 ML Tube MUCMEM ONE (15:01)
[2019-02-21] MEDS ORDERED: Lidocaine 2% HCl 6 ML JEL.PF.APP ONE ×2 (15:03→15:30)
[2019-02-21] MEDS ORDERED: cefTRIAXone 2 GM Vial IVPUSH ONE (15:42)
[2019-02-21] MEDS ORDERED: Piperacillin/Tazobactam 3.375 GM in Sodium Chloride 0.9% 50 ML IV ONE (15:43)
[2019-02-21] MEDS ORDERED: HYDROmorphone 2 MG/ML SDV IVPUSH ONE (15:47)
[2019-02-21] MEDS ORDERED: Iopamidol 755 Mg/ML 100 ML Bottle IV ONE (15:53)
[2019-02-21] MEDS: Sodium Chloride 0.9% 10 ML Syringe FLUSH PRN (16:00)
[2019-02-21] MEDS ORDERED: Acetaminophen 500 MG Tab PO ONE (17:11)
[2019-02-21] MEDS ORDERED: Promethazine 25 MG/ML SDV IM PRN (17:26)
[2019-02-21] MEDS ORDERED: Albuterol/Ipratropium 3.0-0.5 MG/3 ML Neb Soln NEB PRN (17:29)
[2019-02-21] MEDS: Insulin Lispro 100 Unit/ML 3 ML KwikPen SUBCUT SCH (18:32)
[2019-02-21] MEDS: VALSARTAN PO SCH (20:44)
[2019-02-21] MEDS: SACUBITRIL PO SCH (20:44)
[2019-02-21] MEDS: Doxepin 25 MG Cap PO SCH (20:44)
[2019-02-21] MEDS: HYDROmorphone 2 MG/ML SDV IVPUSH PRN (20:45)
[2019-02-21] MEDS ORDERED: Insulin Glargine,Human Rec. Analog 100 Units/ML 3 ML Pen SUBCUT SCH (21:00)
[2019-02-21] MEDS ORDERED: Bumetanide 2 MG Tab PO SCH (21:00)
[2019-02-21] MEDS: Acetaminophen 500 MG Tab PO PRN (23:16)
[2019-02-22] MEDS: HYDROmorphone 2 MG/ML SDV IVPUSH PRN ×4 (01:46→23:50)
[2019-02-22] MEDS: Sodium Chloride 0.9% 1,000 ML IV SCH (06:18)
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
[2019-02-22] MEDS: Insulin Lispro 100 Unit/ML 3 ML KwikPen SUBCUT SCH ×3 (08:41→18:30)
[2019-02-22] MEDS: Bumetanide 2 MG Tab PO SCH ×2 (08:44→14:08)
[2019-02-22] MEDS: Citalopram 20 MG Tab PO SCH (08:44)
[2019-02-22] MEDS: Tamsulosin 0.4 MG Cap.ER PO SCH (08:46)
[2019-02-22] MEDS: amLODIPine 5 MG Tab PO SCH (08:46)
[2019-02-22] MEDS: Metoprolol Succinate 50 MG Tab.ER PO SCH (08:46)
[2019-02-22] MEDS: Acetaminophen 500 MG Tab PO PRN (08:48)
[2019-02-22] MEDS: Sodium Chloride 0.9% 10 ML Syringe FLUSH PRN ×7 (08:54→23:53)
[2019-02-22] MEDS: VALSARTAN PO SCH ×2 (09:00→21:01)
[2019-02-22] MEDS: SACUBITRIL PO SCH ×2 (09:00→21:01)
[2019-02-22] MEDS: Ketorolac 30 MG/ML SDV IVPUSH SCH ×3 (09:01→19:51)
[2019-02-22] MEDS: Pantoprazole 40 MG Tab.CR PO SCH (14:08)
[2019-02-22] MEDS: cefTRIAXone 2 GM Vial IVPUSH SCH (16:40)
[2019-02-22] MEDS: Insulin Glargine,Human Rec. Analog 100 Units/ML 3 ML Pen SUBCUT SCH (20:58)
[2019-02-22] MEDS: Doxepin 25 MG Cap PO SCH (21:02)
[2019-02-23] MEDS: Ketorolac 30 MG/ML SDV IVPUSH SCH ×2 (03:11→07:35)
[2019-02-23] MEDS: Sodium Chloride 0.9% 10 ML Syringe FLUSH PRN ×3 (03:16→22:14)
[2019-02-23] MEDS: Bumetanide 2 MG Tab PO SCH ×2 (07:35→14:24)
[2019-02-23] MEDS: Insulin Lispro 100 Unit/ML 3 ML KwikPen SUBCUT SCH ×3 (07:37→17:00)
--- NOTE | 2019-02-23 08:44 | PCM.PN ---
- General Info Date of Service: 02/23/19 Subjective Update: Not feeling 100% yet.Some dysuria. Functional Status: Reports: Pain Controlled, Tolerating Diet, Ambulating - Review of Systems HEENT: Reports: No Symptoms Pulmonary: Reports: No Symptoms Cardiovascular: Reports: No Symptoms Gastrointestinal: Reports: No Symptoms - Patient Data Vitals - Most Recent: Last Vital Signs Temp 97.8 F 02/23/19 07:27 Pulse 74 02/23/19 07:27 Resp 18 02/23/19 07:27 BP 157/63 H 02/23/19 07:27 Pulse Ox 97 02/23/19 07:27 Weight - Most Recent: 143.534 kg Lab Results Last 24 Hours: Laboratory Results - last 24 hr 02/21/19 02/22/19 02/22/19 Range/Units 14:37 11:54 16:52 WBC (4.5-12.0) X10-3/uL RBC (4.30-5.75) x10(6)uL Hgb (13.5-17.8) g/dL Hct (30.0-51.3) % MCV (80-96) fL MCH (27.7-33.6) pg MCHC (32.2-35.4) g/dL RDW (11.5-15.5) % Plt Count (125-369) X10(3)uL MPV (7.4-10.4) fL Neut % (Auto) (46-82) % Lymph % (Auto) (13-37) % [place] % (Auto) (4-12) % Eos % (Auto) (1.0-5.0) % Baso % (Auto) (0-2) % Neut # (Auto) (1.6-8.3) # Lymph # (Auto) (0.6-5.0) # [place] # (Auto) (0.0-1.3) # Eos # (Auto) (0.0-0.8) # Baso # (Auto) (0.0-0.2) # Sodium (135-145) mmol/L Potassium (3.5-5.3) mmol/L Chloride (100-110) mmol/L Carbon Dioxide (21-32) mmol/L BUN (7-18) mg/dL Creatinine (0.70-1.30) mg/dL Est Cr Clr Drug Dosing mL/min Estimated GFR (MDRD) (>60) BUN/Creatinine Ratio (9-20) Glucose (80-116) mg/dL POC Glucose 159 H 128 H 163 H (80-116) mg/dL Calcium (8.6-10.2) mg/dL C-Reactive Protein (0.5-0.9) mg/dL 02/22/19 02/23/19 02/23/19 Range/Units 20:55 06:15 06:15 WBC 11.3 (4.5-12.0) X10-3/uL RBC 4.75 (4.30-5.75) x10(6)uL Hgb 13.7 (13.5-17.8) g/dL Hct 41.2 (30.0-51.3) % MCV 86.8 (80-96) fL MCH 29.0 (27.7-33.6) pg MCHC 33.4 (32.2-35.4) g/dL RDW 13.2 (11.5-15.5) % Plt Count 203 (125-369) X10(3)uL MPV 9.1 (7.4-10.4) fL Neut % (Auto) 73.8 (46-82) % Lymph % (Auto) 12.7 L (13-37) % [place] % (Auto) 9.0 (4-12) % Eos % (Auto) 4 (1.0-5.0) % Baso % (Auto) 1 (0-2) % Neut # (Auto) 8.4 H (1.6-8.3) # Lymph # (Auto) 1.4 (0.6-5.0) # [place] # (Auto) 1.0 (0.0-1.3) # Eos # (Auto) 0.4 (0.0-0.8) # Baso # (Auto) 0.1 (0.0-0.2) # Sodium 139 (135-145) mmol/L Potassium 4.1 (3.5-5.3) mmol/L Chloride 103 (100-110) mmol/L Carbon Dioxide 30 (21-32) mmol/L BUN 30 H D (7-18) mg/dL Creatinine 1.6 H (0.70-1.30) mg/dL Est Cr Clr Drug Dosing 57.80 mL/min Estimated GFR (MDRD) 44 L (>60) BUN/Creatinine Ratio 18.8 (9-20) Glucose 120 H (80-116) mg/dL POC Glucose 156 H (80-116) mg/dL Calcium 8.5 L (8.6-10.2) mg/dL C-Reactive Protein (0.5-0.9) mg/dL 02/23/19 Range/Units 06:15 WBC (4.5-12.0) X10-3/uL RBC (4.30-5.75) x10(6)uL Hgb (13.5-17.8) g/dL Hct (30.0-51.3) % MCV (80-96) fL MCH (27.7-33.6) pg MCHC (32.2-35.4) g/dL RDW (11.5-15.5) % Plt Count (125-369) X10(3)uL MPV (7.4-10.4) fL Neut % (Auto) (46-82) % Lymph % (Auto) (13-37) % [place] % (Auto) (4-12) % Eos % (Auto) (1.0-5.0) % Baso % (Auto) (0-2) % Neut # (Auto) (1.6-8.3) # Lymph # (Auto) (0.6-5.0) # [place] # (Auto) (0.0-1.3) # Eos # (Auto) (0.0-0.8) # Baso # (Auto) (0.0-0.2) # Sodium (135-145) mmol/L Potassium (3.5-5.3) mmol/L Chloride (100-110) mmol/L Carbon Dioxide (21-32) mmol/L BUN (7-18) mg/dL Creatinine (0.70-1.30) mg/dL Est Cr Clr Drug Dosing mL/min Estimated GFR (MDRD) (>60) BUN/Creatinine Ratio (9-20) Glucose (80-116) mg/dL POC Glucose (80-116) mg/dL Calcium (8.6-10.2) mg/dL C-Reactive Protein 20.0 H* (0.5-0.9) mg/dL Aidan Results Last 24 Hours: Microbiology 02/21/19 15:00 Aerobic Blood Culture - Preliminary Blood - Venous - Lab Draw NO GROWTH AFTER 1 DAY Anaerobic Blood Culture - Preliminary NO GROWTH AFTER 1 DAY 02/21/19 14:50 Aerobic Blood Culture - Preliminary Blood - Venous NO GROWTH AFTER 1 DAY Anaerobic Blood Culture - Preliminary NO GROWTH AFTER 1 DAY 02/21/19 15:32 Urine Culture - Preliminary Urine, Catheterized Gram Negative Rods Med Orders - Current: Current Medications Acetaminophen (Tylenol Extra Strength) 1,000 mg PO Q6H PRN PRN Reason: Fever Last Admin: 02/22/19 08:48 Dose: 1,000 mg Albuterol/Ipratropium (Duoneb 3.0-0.5 Mg/3 Ml) 3 ml NEB Q6H PRN PRN Reason: Shortness of Breath Amlodipine Besylate (Norvasc) 5 mg PO DAILY REPLACED BY [facility] Last Admin: 02/22/19 08:46 Dose: 5 mg Bumetanide (Bumex) 2 mg PO BIDDIURETIC REPLACED BY [facility] Last Admin: 02/23/19 07:35 Dose: 2 mg Ceftriaxone Sodium (Rocephin) 2 gm IVPUSH Q24H REPLACED BY [facility] Last Admin: 02/22/19 16:40 Dose: 2 gm Citalopram Hydrobromide (Celexa) 40 mg PO DAILY REPLACED BY [facility] Last Admin: 02/22/19 08:44 Dose: 40 mg Doxepin HCl (Sinequan) 25 mg PO BEDTIME REPLACED BY [facility] Last Admin: 02/22/19 21:02 Dose: 25 mg Hydromorphone HCl (Dilaudid) 0.5 mg IVPUSH Q4H PRN PRN Reason: Pain (moderate 4-6) Last Admin: 02/22/19 23:50 Dose: 0.5 mg Insulin Glargine (Lantus Solostar) 31 units SUBCUT BEDTIME REPLACED BY [facility] Last Admin: 02/22/19 20:58 Dose: 31 units Insulin Human Lispro (Humalog) 0 unit SUBCUT TIDMEALS REPLACED BY [facility]; Protocol Last Admin: 02/23/19 07:37 Dose: Not Given Ketorolac Tromethamine (Toradol) 30 mg IVPUSH Q6H REPLACED BY [facility] Stop: 02/27/19 08:29 Last Admin: 02/23/19 07:35 Dose: 30 mg Metoprolol Succinate (Toprol Xl) 150 mg PO DAILY REPLACED BY [facility] Last Admin: 02/22/19 08:46 Dose: 150 mg Sacubitril/Valsartan [Entresto] 49mg- 51mg Tablet Own Med 1 each PO BID REPLACED BY [facility] Last Admin: 02/22/19 21:01 Dose: 1 each Pantoprazole Sodium (Protonix) 40 mg PO WITHLUNCH REPLACED BY [facility] Last Admin: 02/22/19 14:08 Dose: 40 mg Promethazine HCl (Phenergan) 12.5 mg IM Q6H PRN PRN Reason: Nausea/Vomiting Sodium Chloride (Saline Flush) 10 ml FLUSH ASDIRECTED PRN PRN Reason: Keep Vein Open Last Admin: 02/23/19 07:42 Dose: 10 ml Sodium Chloride (Saline Flush) 10 ml FLUSH ASDIRECTED PRN PRN Reason: Keep Vein Open Tamsulosin HCl (Flomax) 0.4 mg PO DAILY REPLACED BY [facility] Last Admin: 02/22/19 08:46 Dose: 0.4 mg Discontinued Medications Acetaminophen (Tylenol Extra Strength) 1,000 mg PO ONETIME ONE Stop: 02/21/19 17:12 Last Admin: 02/21/19 17:20 Dose: 1,000 mg Bumetanide (Bumex) 2 mg PO BID REPLACED BY [facility] Last Admin: 02/21/19 20:44 Dose: 2 mg Ceftriaxone Sodium (Rocephin) 2 gm IVPUSH ONETIME ONE Stop: 02/21/19 15:43 Last Admin: 02/21/19 15:57 Dose: 2 gm Hydromorphone HCl (Dilaudid) 0.5 mg IVPUSH ONETIME ONE Stop: 02/21/19 15:48 Last Admin: 02/21/19 15:56 Dose: 0.5 mg Sodium Chloride (Normal Saline) 1,000 mls @ 100 mls/hr IV ASDIRECTED REPLACED BY [facility] Last Admin: 02/22/19 06:18 Dose: 100 mls/hr Piperacillin Sod/Tazobactam (Sod 3.375 gm/ Sodium Chloride) 50 mls @ 100 mls/ hr IV .ONCE ONE Stop: 02/21/19 16:12 Last Admin: 02/21/19 16:19 Dose: 100 mls/hr Insulin Glargine (Lantus Solostar) 31 units SUBCUT BEDTIME [facility] Last Admin: 02/21/19 20:41 Dose: 31 units Iopamidol (Isovue-370 (76%)) 100 ml IV . DIRECTED ONE Stop: 02/21/19 15:54 Last Admin: 02/21/19 16:15 Dose: 83 ml Lidocaine HCl (Xylocaine 2% Jelly) 5 ml MUCMEM ONETIME ONE Stop: 02/21/19 15:02 Last Admin: 02/21/19 15:43 Dose: Not Given Lidocaine HCl (Glydo) 10 ml .XX ONETIME ONE Stop: 02/21/19 15:04 Last Admin: 02/21/19 15:43 Dose: Not Given Lidocaine HCl (Glydo) 6 ml .XX ONETIME ONE Stop: 02/21/19 15:31 Last Admin: 02/21/19 15:44 Dose: 6 ml Metformin HCl (Glucophage) 850 mg PO BIDMEALS NIKHIL - Exam General: Alert HEENT: Pupils Equal Neck: Supple Lungs: Clear to Auscultation Cardiovascular: Regular Rate Back Exam: CVA Tenderness (R) - Problem List & Annotations (1) Pyelonephritis SNOMED Code(s): 97377857 Code(s): N12 - TUBULO-INTERSTITIAL NEPHRITIS, NOT SPCF ACUTE OR CHRONIC Status: Acute Current Visit: Yes (2) COPD (chronic obstructive pulmonary disease) SNOMED Code(s): 50712924 Code(s): J44.9 - CHRONIC OBSTRUCTIVE PULMONARY DISEASE, UNSPECIFIED Status : Acute Current Visit: Yes Qualifiers: COPD type: chronic bronchitis (3) Diabetes mellitus type 2 in obese SNOMED Code(s): 28120471 Code(s): E11.69 - TYPE 2 DIABETES MELLITUS WITH OTHER SPECIFIED COMPLICATION ; E66.9 - OBESITY, UNSPECIFIED Status: Acute Current Visit: No (4) Cardiomyopathy SNOMED Code(s): 59337888 Code(s): I42.9 - CARDIOMYOPATHY, UNSPECIFIED Status: Chronic Priority: Medium Current Visit: No (5) HTN, Benign hypertension SNOMED Code(s): 61834409 Code(s): I10 - ESSENTIAL (PRIMARY) HYPERTENSION Status: Chronic Priority : Medium Current Visit: No (6) NEYMAR (acute kidney injury) SNOMED Code(s): 26549963, 68860860 Code(s): N17.9 - ACUTE KIDNEY FAILURE, UNSPECIFIED Status: Acute Current Visit: Yes (7) Gastric ulcer SNOMED Code(s): 760859299 Code(s): K25.9 - GASTRIC ULCER, UNSP ACUTE OR CHRONIC, W/O HEMOR OR PERF Status: Acute Current Visit: No Qualifiers: Gastric ulcer chronicity: acute - Problem List Review Problem List Initiated/Reviewed/Updated: Yes - My Orders Last 24 Hours: My Active Orders 02/22/19 08:30 Ketorolac [Toradol] 30 mg IVPUSH Q6H - Plan Plan:: I will continue with ceftriaxone daily. Control his sugars await blood and urine cultures.So far gram pos cocci growing in urine. Sensitivities pending. DC home tomorrow based on sensitivities.
[2019-02-23] MEDS: Tamsulosin 0.4 MG Cap.ER PO SCH (09:37)
[2019-02-23] MEDS: amLODIPine 5 MG Tab PO SCH (09:37)
[2019-02-23] MEDS: Citalopram 20 MG Tab PO SCH (09:37)
[2019-02-23] MEDS: Metoprolol Succinate 50 MG Tab.ER PO SCH (09:38)
[2019-02-23] MEDS: SACUBITRIL PO SCH ×2 (09:38→20:47)
[2019-02-23] MEDS: VALSARTAN PO SCH ×2 (09:38→20:47)
[2019-02-23] MEDS: Acetaminophen 500 MG Tab PO PRN (11:55)
[2019-02-23] MEDS: Pantoprazole 40 MG Tab.CR PO SCH (12:27)
[2019-02-23] MEDS: Ketorolac 15 MG/ML SDV IVPUSH SCH ×2 (14:24→20:53)
[2019-02-23] MEDS: cefTRIAXone 2 GM Vial IVPUSH SCH (16:36)
[2019-02-23] MEDS: Doxepin 25 MG Cap PO SCH (20:48)
[2019-02-23] MEDS: Insulin Glargine,Human Rec. Analog 100 Units/ML 3 ML Pen SUBCUT SCH (20:50)
[2019-02-24] MEDS: Ketorolac 15 MG/ML SDV IVPUSH SCH ×2 (02:48→08:57)
[2019-02-24] MEDS: Sodium Chloride 0.9% 10 ML Syringe FLUSH PRN (02:51)
--- NOTE | 2019-02-24 08:22 | PCM.PN ---
- General Info Date of Service: 02/24/19 Subjective Update: Not feeling 100% yet.Some dysuria. Functional Status: Reports: Pain Controlled - Review of Systems General: Reports: No Symptoms HEENT: Reports: No Symptoms Pulmonary: Reports: No Symptoms Cardiovascular: Reports: No Symptoms Gastrointestinal: Reports: No Symptoms Genitourinary: Reports: No Symptoms Musculoskeletal: Reports: No Symptoms Skin: Reports: No Symptoms Neurological: Reports: No Symptoms Psychiatric: Reports: No Symptoms - Patient Data Vitals - Most Recent: Last Vital Signs Temp 97.6 F 02/24/19 02:00 Pulse 66 02/24/19 02:00 Resp 16 02/24/19 02:00 BP 116/59 L 02/24/19 02:00 Pulse Ox 94 L 02/24/19 02:00 Weight - Most Recent: 143.534 kg Lab Results Last 24 Hours: Laboratory Results - last 24 hr 02/23/19 02/23/19 02/23/19 Range/Units 11:27 16:55 20:45 POC Glucose 139 H 166 H 128 H (80-116) mg/dL 02/24/19 Range/Units 06:47 POC Glucose 87 (80-116) mg/dL Aidan Results Last 24 Hours: Microbiology 02/21/19 14:50 Aerobic Blood Culture - Preliminary Blood - Venous NO GROWTH AFTER 2 DAYS Anaerobic Blood Culture - Preliminary NO GROWTH AFTER 2 DAYS 02/21/19 15:00 Aerobic Blood Culture - Preliminary Blood - Venous - Lab Draw NO GROWTH AFTER 2 DAYS Anaerobic Blood Culture - Preliminary NO GROWTH AFTER 2 DAYS 02/21/19 15:32 Urine Culture - Final Urine, Catheterized Klebsiella Pneumoniae Med Orders - Current: Current Medications Acetaminophen (Tylenol Extra Strength) 1,000 mg PO Q6H PRN PRN Reason: Fever Last Admin: 02/23/19 11:55 Dose: 1,000 mg Albuterol/Ipratropium (Duoneb 3.0-0.5 Mg/3 Ml) 3 ml NEB Q6H PRN PRN Reason: Shortness of Breath Amlodipine Besylate (Norvasc) 5 mg PO DAILY [facility] Last Admin: 02/23/19 09:37 Dose: 5 mg Bumetanide (Bumex) 2 mg PO BIDDIURETIC [facility] Last Admin: 02/23/19 14:24 Dose: 2 mg Ceftriaxone Sodium (Rocephin) 2 gm IVPUSH Q24H [facility] Last Admin: 02/23/19 16:36 Dose: 2 gm Citalopram Hydrobromide (Celexa) 40 mg PO DAILY [facility] Last Admin: 02/23/19 09:37 Dose: 40 mg Doxepin HCl (Sinequan) 25 mg PO BEDTIME [facility] Last Admin: 02/23/19 20:48 Dose: 25 mg Hydromorphone HCl (Dilaudid) 0.5 mg IVPUSH Q4H PRN PRN Reason: Pain (moderate 4-6) Last Admin: 02/22/19 23:50 Dose: 0.5 mg Insulin Glargine (Lantus Solostar) 31 units SUBCUT BEDTIME [facility] Last Admin: 02/23/19 20:50 Dose: 31 units Insulin Human Lispro (Humalog) 0 unit SUBCUT TIDMEALS [facility]; Protocol Last Admin: 02/23/19 17:00 Dose: 1 unit Ketorolac Tromethamine (Toradol) 15 mg IVPUSH Q6H [facility] Stop: 02/27/19 08:22 Last Admin: 02/24/19 02:48 Dose: 15 mg Metoprolol Succinate (Toprol Xl) 150 mg PO DAILY [facility] Last Admin: 02/23/19 09:38 Dose: 150 mg Sacubitril/Valsartan [Entresto] 49mg- 51mg Tablet Own Med 1 each PO BID [facility] Last Admin: 02/23/19 20:47 Dose: 1 each Pantoprazole Sodium (Protonix) 40 mg PO WITHLUNCH [facility] Last Admin: 02/23/19 12:27 Dose: 40 mg Promethazine HCl (Phenergan) 12.5 mg IM Q6H PRN PRN Reason: Nausea/Vomiting Sodium Chloride (Saline Flush) 10 ml FLUSH ASDIRECTED PRN PRN Reason: Keep Vein Open Last Admin: 02/24/19 02:51 Dose: 10 ml Sodium Chloride (Saline Flush) 10 ml FLUSH ASDIRECTED PRN PRN Reason: Keep Vein Open Tamsulosin HCl (Flomax) 0.4 mg PO DAILY [facility] Last Admin: 02/23/19 09:37 Dose: 0.4 mg Discontinued Medications Acetaminophen (Tylenol Extra Strength) 1,000 mg PO ONETIME ONE Stop: 02/21/19 17:12 Last Admin: 02/21/19 17:20 Dose: 1,000 mg Bumetanide (Bumex) 2 mg PO BID [facility] Last Admin: 02/21/19 20:44 Dose: 2 mg Ceftriaxone Sodium (Rocephin) 2 gm IVPUSH ONETIME ONE Stop: 02/21/19 15:43 Last Admin: 02/21/19 15:57 Dose: 2 gm Hydromorphone HCl (Dilaudid) 0.5 mg IVPUSH ONETIME ONE Stop: 02/21/19 15:48 Last Admin: 02/21/19 15:56 Dose: 0.5 mg Sodium Chloride (Normal Saline) 1,000 mls @ 100 mls/hr IV ASDIRECTED [facility] Last Admin: 02/22/19 06:18 Dose: 100 mls/hr Piperacillin Sod/Tazobactam (Sod 3.375 gm/ Sodium Chloride) 50 mls @ 100 mls/ hr IV .ONCE ONE Stop: 02/21/19 16:12 Last Admin: 02/21/19 16:19 Dose: 100 mls/hr Insulin Glargine (Lantus Solostar) 31 units SUBCUT BEDTIME [facility] Last Admin: 02/21/19 20:41 Dose: 31 units Iopamidol (Isovue-370 (76%)) 100 ml IV . DIRECTED ONE Stop: 02/21/19 15:54 Last Admin: 02/21/19 16:15 Dose: 83 ml Ketorolac Tromethamine (Toradol) 30 mg IVPUSH Q6H [facility] Stop: 02/27/19 08:29 Last Admin: 02/23/19 07:35 Dose: 30 mg Lidocaine HCl (Xylocaine 2% Jelly) 5 ml MUCMEM ONETIME ONE Stop: 02/21/19 15:02 Last Admin: 02/21/19 15:43 Dose: Not Given Lidocaine HCl (Glydo) 10 ml .XX ONETIME ONE Stop: 02/21/19 15:04 Last Admin: 02/21/19 15:43 Dose: Not Given Lidocaine HCl (Glydo) 6 ml .XX ONETIME ONE Stop: 02/21/19 15:31 Last Admin: 02/21/19 15:44 Dose: 6 ml Metformin HCl (Glucophage) 850 mg PO BIDMEALS [facility] - Exam General: Alert HEENT: Pupils Equal Psy/Mental Status: Alert, Normal Affect, Normal Mood - Problem List & Annotations (1) Pyelonephritis SNOMED Code(s): 97512316 Code(s): N12 - TUBULO-INTERSTITIAL NEPHRITIS, NOT SPCF ACUTE OR CHRONIC Status: Acute Current Visit: Yes (2) COPD (chronic obstructive pulmonary disease) SNOMED Code(s): 04458072 Code(s): J44.9 - CHRONIC OBSTRUCTIVE PULMONARY DISEASE, UNSPECIFIED Status : Acute Current Visit: Yes Qualifiers: COPD type: chronic bronchitis (3) Diabetes mellitus type 2 in obese SNOMED Code(s): 31666346 Code(s): E11.69 - TYPE 2 DIABETES MELLITUS WITH OTHER SPECIFIED COMPLICATION ; E66.9 - OBESITY, UNSPECIFIED Status: Acute Current Visit: No (4) Cardiomyopathy SNOMED Code(s): 09062266 Code(s): I42.9 - CARDIOMYOPATHY, UNSPECIFIED Status: Chronic Priority: Medium Current Visit: No (5) HTN, Benign hypertension SNOMED Code(s): 06300808 Code(s): I10 - ESSENTIAL (PRIMARY) HYPERTENSION Status: Chronic Priority : Medium Current Visit: No (6) NEYMAR (acute kidney injury) SNOMED Code(s): 73076229, 96348756 Code(s): N17.9 - ACUTE KIDNEY FAILURE, UNSPECIFIED Status: Acute Current Visit: Yes (7) Gastric ulcer SNOMED Code(s): 841107869 Code(s): K25.9 - GASTRIC ULCER, UNSP ACUTE OR CHRONIC, W/O HEMOR OR PERF Status: Acute Current Visit: No Qualifiers: Gastric ulcer chronicity: acute - Problem List Review Problem List Initiated/Reviewed/Updated: Yes - My Orders Last 24 Hours: My Active Orders 02/23/19 14:30 Ketorolac [Toradol] 15 mg IVPUSH Q6H - Plan Plan:: Klbesiella Pneumonia growing. Sensitive to cephalosporins. I recommed DC home on Cefuroxime.
[2019-02-24] MEDS: Citalopram 20 MG Tab PO SCH (08:55)
[2019-02-24] MEDS: Bumetanide 2 MG Tab PO SCH (08:55)
[2019-02-24] MEDS: Tamsulosin 0.4 MG Cap.ER PO SCH (08:56)
[2019-02-24] MEDS: VALSARTAN PO SCH (08:56)
[2019-02-24] MEDS: Metoprolol Succinate 50 MG Tab.ER PO SCH (08:56)
[2019-02-24] MEDS: amLODIPine 5 MG Tab PO SCH (08:56)
[2019-02-24] MEDS: SACUBITRIL PO SCH (08:56)
[2019-02-24] MEDS: Insulin Lispro 100 Unit/ML 3 ML KwikPen SUBCUT SCH (09:00)
--- NOTE | 2019-02-24 12:59 | DISCH ---
DISCHARGE DATE: 02/24/2019 REASON FOR ADMISSION: Acute pyelonephritis. DISCHARGE DIAGNOSIS: Acute pyelonephritis. SECONDARY DIAGNOSES: 1. Type 2 diabetes. 2. Obesity. 3. Depression. 4. Chronic back pain. 5. Acute renal insufficiency. 6. History of cardiomyopathy, ejection fraction 40%. 7. Chronic obstructive pulmonary disease. 8. Hypertension. CONSULTATIONS: None. BRIEF HISTORY: This is a 59-year-old, who was admitted with back pain, chills, dysuria, frequency. He was found to have a urinary tract infection and admitted for IV resuscitation and IV antibiotics. He got IV Rocephin and his symptoms improved significantly. His vital signs have remained stable. His urine culture grew Klebsiella pneumoniae that had garcia sensitivity including nitrofurantoin, Bactrim. I discharged him home on cefuroxime 500 mg p.o. b.i.d. for 5 days and recommended that he see Dr. Brock next week. The rest of his home medications were continued. I spent more than 35 minutes in the discharge of the patient. /[id number] EDDIE/AJAY
== END 2019-02-24 10:15 | disposition home or self-care (01) | DRG 690 ==
LOC: FB.ED 14:31 → FB.MS 16:52
PROVIDERS: ADMIT Family Medicine; ATTEND Family Medicine
DX: N10 Acute pyelonephritis (principal); I42.0 Dilated cardiomyopathy; B96.1 Klebsiella pneumoniae [K. pneumoniae] as the cause of diseases classified elsewhere; N17.9 Acute kidney failure, unspecified; I11.0 Hypertensive heart disease with heart failure; I50.9 Heart failure, unspecified; J44.9 Chronic obstructive pulmonary disease, unspecified; E11.69 Type 2 diabetes mellitus with other specified complication; Z79.4 Long term (current) use of insulin; E66.9 Obesity, unspecified; R53.1 Weakness; R50.9 Fever, unspecified; Z99.81 Dependence on supplemental oxygen; Z87.891 Personal history of nicotine dependence; Z68.38 Body mass index [BMI] 38.0-38.9, adult; K57.30 Diverticulosis of large intestine without perforation or abscess without bleeding; Z87.442 Personal history of urinary calculi; M19.90 Unspecified osteoarthritis, unspecified site; M54.9 Dorsalgia, unspecified; G89.29 Other chronic pain; F41.9 Anxiety disorder, unspecified; Z95.5 Presence of coronary angioplasty implant and graft; F81.9 Developmental disorder of scholastic skills, unspecified; Z79.899 Other long term (current) drug therapy; Z91.018 Allergy to other foods
CPT/HCPCS: 36415; 51701; 71045; 71250; 71275; 74176; 80048; 80053; 81001; 82962; 83605; 84484; 85025; 85379; 85610; 85730; 86140; 87040; 87086; 87088; 87186; 93005; 96361; 96365; 96375; 99285-25; A9270-GY; J0696; J1170; J1815; J1815-GY; J1885; J2543; J7030; J7050; Q9967